=== PATIENT | male | born 1945 | race Caucasian/White ===

== ENCOUNTER 2017-10-06 19:11 | Inpatient (IN) | payer MEDICAID ==
--- NOTE | 2017-10-06 19:35 | ED Physician Chart ---
ED Chief Complaint/HPI - Patient Information Date Seen:: 10/06/17 Time Seen:: 19:30 Chief Complaint:: swelling left arm and right foot History of Present Illness:: Patient's had intermittent swelling of his left arm and right foot for last 2 weeks. A venous Doppler was done on both 10/03/17 and was negative. Review:: Transfer documents Reviewed ED Review of Systems - Review of Systems General/Constitutional: No fever, No chills, No weight loss, No weakness, No diaphoresis, No edema, No loss of appetite Skin: No skin lesions, No rash, No bruising Head: No headache, No light-headedness Eyes: No loss of vision, No pain, No diplopia ENT: No earache, No nasal drainage, No sore throat, No tinnitus Neck: No neck pain, No swelling, No thyromegaly, No stiffness, No mass noted Cardio Vascular: No chest pain, No palpitations, No PND, No orthopnea, No edema Pulmonary: No SOB, No cough, No sputum, No wheezing GI: No nausea, No vomiting, No diarrhea, No pain, No melena, No hematochezia, No constipation, No hematemesis G/U: No dysuria, No frequency, No hematuria Musculoskeletal: No bone or joint pain, No back pain, No muscle pain, Other ( see history and physical) Endocrine: No polyuria, No polydipsia Psychiatric: No prior psych history, No depression, No anxiety, No suicidal ideation Hematopoietic: No bruising, No lymphadenopathy Allergic/Immuno: No urticaria, No angioedema Neurological: No syncope, No focal symptoms, No weakness, No paresthesia, No headache, No seizure, No dizziness, No confusion, No vertigo ED Past Medical History - Past Medical History Past Medical History: Thyroid disorder, Other (traumatic subdural hematoma with cerebral edema; Parkinson's disease; seizures; encephalopathy; extraparametal symptoms; cephalea major depression; sobria; right eye syndrome;) Family History: Other (unavailable) Social History: Care Facility (unavailable) Surgical History: other (subdural hematoma) Psychiatricy History: Depression, Schizophrenia Medication: Reviewed Family Medical History - Family Member Mother History Unknown: Yes ED Physical Exam - Physical Examination General/Constitutional: Awake Other Gen/Cons comments:: No verbal response; chronically ill-appearing Head: Atraumatic Eyes: Lids, conjuctiva normal, PERRL Other Skin comments:: Lower extremity crusted abrasions ENMT: External ears, nose nl, Oropharynx nl Neck: No nuchal rigidity Respiratory: Nl effort/Exclusion, Clear to Auscultation Cardio Vascular: RRR GI: No tenderness/rebounding/guarding, No organomegaly : No CVA tenderness Other Extremities comments:: Posterior left elbow swelling; no swelling of remainder of left arm. No swelling of right leg Neuro/Psych: No focal deficits ED Labs/Radiology/EKG Results - Lab Results Results: Laboratory Results - last 24 hr 10/06/17 10/06/17 19:40 19:40 WBC 6.0 RBC 4.00 Hgb 13.2 Hct 38.5 L MCV 96.3 MCH 33.0 H MCHC Differential 34.2 RDW 13.3 Plt Count 192 MPV 8.5 Neutrophils % 63.8 Lymphocytes % 26.4 Monocytes % 6.0 Eosinophils % 3.1 Basophils % 0.7 Sodium 140 Potassium 3.8 Chloride 105 Carbon Dioxide 28.4 Anion Gap 10.4 BUN 24 Creatinine 0.9 Est GFR ( Amer) TNP Est GFR (Non-Af Amer) TNP BUN/Creatinine Ratio 26.7 Glucose 123 H Calcium 9.1 Total Bilirubin 0.3 AST 19 ALT 15 Alkaline Phosphatase 70 Total Protein 6.4 Albumin 3.8 L Globulin 2.6 Albumin/Globulin Ratio 1.5
[2017-10-06 19:50] LABS: % BASOPHILS 0.7 % (0.0-2.0); % EOSINOPHILS 3.1 % (0.0-5.0); % LYMPHOCYTES 26.4 % (20.0-50.0); % NEUTROPHILS 63.8 % (40.0-80.0); EOSINOPHILE ABSOLUTE 0.2 Th/cmm (0.1-0.4); HEMATOCRIT 38.5 % (41.0-60); HEMOGLOBIN 13.2 gm/dL (12-16); LYMPHOCYTE ABSOLUTE 1.6 Th/cmm (1.5-3.0); MEAN CELL VOLUME 96.3 fl (80-99); MEAN CORPUSCULAR HGB CONC 34.2 pg (28.0-36.0); MEAN PLATELET VOLUME 8.5 fl; MONOCYTE ABSOLUTE 0.4 Th/cmm (0.3-1.0); NEUTROPHILE ABSOLUTE 3.8 Th/cmm (1.8-8.0); PLATELET COUNT 192 Th/cmm (150-400); RED CELL DISTRIBUTION WIDTH 13.3 % (11.5-20.0)
[2017-10-06 20:09] LABS: ALB/GLOB RATIO 1.5 (1.0-1.8); ALBUMIN 3.8 gm/dL (4.2-5.5); ALKALINE PHOSPHATASE 70 U/L (34-104); ANION GAP 10.4 (7.0-16.0); BILIRUBIN,TOTAL 0.3 mg/dL (0.3-1.0); BUN - UREA NITROGEN 24 mg/dL (7-25); CALCIUM SERUM 9.1 mg/dL (8.6-10.3); CARBON DIOXIDE 28.4 mEq/L (21.0-31.0); CHLORIDE 105 mEq/L (98-107); CREATININE - SERUM 0.9 mg/dL (0.7-1.3); GLUCOSE 123 mg/dL (70-105); POTASSIUM SERUM 3.8 mEq/L (3.5-5.1); SGOT 19 U/L (13-39); SGPT/ALT 15 U/L (7-52); SODIUM SERUM 140 mEq/L (136-145); TOTAL PROTEIN,SERUM 6.4 gm/dL (6.0-8.3)
[2017-10-06] MEDS ORDERED: Magnesium Hydroxide (MOM) 30 mL UDC PO PRN (21:32)
[2017-10-06] MEDS ORDERED: Hydrocodone/APAP 5mg/325mg Tab PO PRN (21:32)
[2017-10-06] MEDS ORDERED: Maalox 30 mL Cup PO PRN (21:32)
[2017-10-06] MEDS ORDERED: guaiFENesin 200 MG/10 ML UDC PO PRN (21:35)
[2017-10-06] MEDS ORDERED: Ipratropium Neb 0.5 mg/2.5 mL UD HHN PRN (21:35)
[2017-10-06] MEDS ORDERED: Albuterol Nebulizer 2.5mg/3mL HHN PRN (21:35)
[2017-10-07] MEDS: Levofloxacin 500mg/100mL 500 MG/100 ML BAG IV SCH (00:19)
[2017-10-07 05:16] VITALS: BP 152/72
[2017-10-07 06:59] LABS: ANION GAP 8.1 (7.0-16.0); BUN - UREA NITROGEN 18 mg/dL (7-25); CARBON DIOXIDE 28.7 mEq/L (21.0-31.0); CHLORIDE 104 mEq/L (98-107); CREATININE - SERUM 0.8 mg/dL (0.7-1.3); GLUCOSE 101 mg/dL (70-105); POTASSIUM SERUM 3.8 mEq/L (3.5-5.1); SODIUM SERUM 137 mEq/L (136-145)
[2017-10-07] MEDS: Levothyroxine 0.05 Mg Tab PO SCH (07:07)
--- NOTE | 2017-10-07 08:42 | Diagnostic Imaging Report ---
Portable chest x-ray HISTORY: Cough There is a poor inspiration. This results in accentuation of the interstitial lung markings. Allowing for this factor, no acute focal pulmonary processes are seen. Allowing for the poor inspiration, the heart size appears normal. Atherosclerotic calcification seen in the aorta. Degenerative changes seen to the spine. IMPRESSION: 1. Allowing for a poor inspiration, no acute focal pulmonary processes
[2017-10-07] MEDS ORDERED: Probiotic Screen MC PRN (10:15)
[2017-10-07] MEDS: Multivitamin w/ Minerals Tab PO SCH (11:40)
[2017-10-07] MEDS: Polyvinyl Alcohol Ophth Soln 15 mL Bottle EACH EYE SCH ×2 (11:40→17:50)
--- NOTE | 2017-10-07 12:26 | Internal Medicine Prog Note ---
Internal Medicine Subjective - Subjective Service Date: 10/07/17 ([facility] [id number]) Internal Medicine Objective - Results Result Diagrams: 10/06/17 19:40 10/07/17 06:00 Recent Labs: Laboratory Last Values WBC 6.0 Th/cmm (4.8-10.8) 10/06/17 19:40 RBC 4.00 Mil/cmm (3.80-5.80) 10/06/17 19:40 Hgb 13.2 gm/dL (12-16) 10/06/17 19:40 Hct 38.5 % (41.0-60) L 10/06/17 19:40 MCV 96.3 fl (80-99) 10/06/17 19:40 MCH 33.0 pg (27.0-31.0) H 10/06/17 19:40 MCHC Differential 34.2 pg (28.0-36.0) 10/06/17 19:40 RDW 13.3 % (11.5-20.0) 10/06/17 19:40 Plt Count 192 Th/cmm (150-400) 10/06/17 19:40 MPV 8.5 fl 10/06/17 19:40 Neutrophils % 63.8 % (40.0-80.0) 10/06/17 19:40 Lymphocytes % 26.4 % (20.0-50.0) 10/06/17 19:40 Monocytes % 6.0 % (2.0-10.0) 10/06/17 19:40 Eosinophils % 3.1 % (0.0-5.0) 10/06/17 19:40 Basophils % 0.7 % (0.0-2.0) 10/06/17 19:40 ESR 1 mm/hr (0-20) 10/07/17 06:00 Sodium 137 mEq/L (136-145) 10/07/17 06:00 Potassium 3.8 mEq/L (3.5-5.1) 10/07/17 06:00 Chloride 104 mEq/L (98-107) 10/07/17 06:00 Carbon Dioxide 28.7 mEq/L (21.0-31.0) 10/07/17 06:00 Anion Gap 8.1 (7.0-16.0) 10/07/17 06:00 BUN 18 mg/dL (7-25) 10/07/17 06:00 Creatinine 0.8 mg/dL (0.7-1.3) 10/07/17 06:00 Est GFR ( Amer) TNP 10/07/17 06:00 Est GFR (Non-Af Amer) TNP 10/07/17 06:00 BUN/Creatinine Ratio 22.5 10/07/17 06:00 Glucose 101 mg/dL (70-105) 10/07/17 06:00 Calcium 9.0 mg/dL (8.6-10.3) 10/07/17 06:00 Total Bilirubin 0.3 mg/dL (0.3-1.0) 10/06/17 19:40 AST 19 U/L (13-39) 10/06/17 19:40 ALT 15 U/L (7-52) 10/06/17 19:40 Alkaline Phosphatase 70 U/L (34-104) 10/06/17 19:40 Ammonia 41 umol/L (16-53) 10/07/17 06:00 B-Natriuretic Peptide 74.0 pg/mL (5.0-100.0) 10/07/17 06:00 Total Protein 6.4 gm/dL (6.0-8.3) 10/06/17 19:40 Albumin 3.8 gm/dL (4.2-5.5) L 10/06/17 19:40 Globulin 2.6 gm/dL 10/06/17 19:40 Albumin/Globulin Ratio 1.5 (1.0-1.8) 10/06/17 19:40 TSH 3.08 uIU/ml (0.34-5.60) 10/07/17 06:00 - Physical Exam Vitals and I&O: Vital Signs Temp 98.2 F 10/07/17 06:10 Pulse 86 10/07/17 06:10 Resp 17 10/07/17 08:00 BP 140/72 10/07/17 06:10 Pulse Ox 95 10/07/17 06:10 Intake & Output 10/06/17 10/07/17 10/07/17 18:59 06:59 18:59 Intake Total 200 Balance 200 Weight (lbs) 145 lb 9.6 oz Intake: Oral 200 Other: # Voids 1 # Bowel Movements 0 Weight Source Bedscale Active Medications: Current Medications Acetaminophen (Tylenol) 650 mg PO Q6HR PRN PRN Reason: Pain or Fever >101 Stop: 12/05/17 21:31 Acetaminophen/Hydrocodone Bitart ([place] 5mg/325mg) 1 tab PO Q6H PRN PRN Reason: Pain (Severe), LEVEL 7-10 Stop: 12/05/17 21:31 Al Hydrox/Mg Hydrox/Simethicone (Maalox) 30 ml PO Q4HR PRN PRN Reason: GI DISTRESS Stop: 12/05/17 21:31 Albuterol Sulfate (Albuterol 2.5mg/3ml Neb Ud) 2.5 mg HHN Q2HRT PRN PRN Reason: Shortness of Breath or Wheeze Stop: 12/05/17 21:34 Artificial Tears (Artificial Tears Ophth Soln) 1 drop EACH EYE BID [facility] Stop: 12/06/17 08:59 Last Admin: 10/07/17 11:40 Dose: Not Given Benztropine Mesylate (Cogentin) 0.5 mg PO BID [facility] Stop: 12/06/17 08:59 Last Admin: 10/07/17 11:39 Dose: Not Given Bisacodyl (Dulcolax 10 Mg Supp) 10 mg RC DAILY PRN PRN Reason: Constipation Stop: 12/05/17 21:31 Docusate Sodium (Colace) 100 mg PO DAILY [facility] Stop: 12/06/17 08:59 Last Admin: 10/07/17 11:39 Dose: Not Given Famotidine (Pepcid) 20 mg PO DAILY [facility] Stop: 12/06/17 08:59 Last Admin: 10/07/17 11:39 Dose: Not Given Gabapentin (Neurontin) 300 mg PO BID [facility] Stop: 12/06/17 08:59 Last Admin: 10/07/17 11:39 Dose: Not Given Guaifenesin (Robitussin) 200 mg PO Q4HR PRN PRN Reason: Cough or Congestion Stop: 12/05/17 21:34 Heparin Sodium (Porcine) (Heparin) 5,000 units SUBQ Q12HR [facility] Stop: 12/06/17 08:59 Last Admin: 10/07/17 11:39 Dose: Not Given Levofloxacin (Levaquin Pb) 500 mg in 100 mls @ 100 mls/hr IV Q24HR [facility] Stop: 12/05/17 22:59 Last Admin: 10/07/17 00:19 Dose: 100 mls/hr Ipratropium [place] (Atrovent Neb 0.5mg/2.5ml) 0.5 mg HHN Q2HRT PRN PRN Reason: Shortness of Breath or Wheeze Stop: 12/05/17 21:34 Lactobacillus Rhamnosus (Culturelle 15b) 1 each PO DAILY [facility] Stop: 12/07/17 08:59 Levetiracetam (Keppra) 500 mg PO BID [facility] Stop: 12/06/17 08:59 Last Admin: 10/07/17 11:40 Dose: Not Given Levothyroxine Sodium (Synthroid) 0.05 mg PO QDAC [facility] Stop: 12/06/17 07:29 Last Admin: 10/07/17 07:07 Dose: 0.05 mg Lorazepam (Ativan) 0.5 mg PO Q6HR PRN; Protocol PRN Reason: Anxiety Stop: 12/05/17 21:31 Last Admin: 10/06/17 23:19 Dose: 0.5 mg Magnesium Hydroxide (Milk Of Magnesia) 30 ml PO DAILY PRN PRN Reason: Constipation Stop: 12/05/17 21:31 Miscellaneous (Probiotic Screen) 1 ea MC PRN PRN PRN Reason: PROTOCOL Stop: 12/06/17 10:14 Ondansetron HCl (Zofran) 4 mg IV Q8H PRN PRN Reason: Nausea / Vomiting Stop: 12/05/17 21:34 Risperidone (Risperdal) 1 mg PO BID [facility]; Protocol Stop: 12/06/17 08:59 Last Admin: 10/07/17 11:40 Dose: Not Given Senna (Senna) 8.6 mg PO HS [facility] Stop: 12/06/17 20:59
--- NOTE | 2017-10-07 14:14 | History & Physical ---
ADMIT DATE: 10/07/[address] Jonny Constantino. CHIEF COMPLAINT: Swelling, left arm and right foot. HISTORY OF PRESENT ILLNESS: This is a 72-year-old male who is a group home resident, admitted to the Med/Surg unit for intermittent swelling of his left arm and right foot for the last 2 weeks. The patient had a venous Doppler done on 10/03/2017 negative for any DVT. For further management, the patient is now admitted. PAST MEDICAL HISTORY: Hypothyroid, traumatic subdural hematoma with cerebral edema, Parkinson's disease, seizures, encephalopathy, extrapyramidal symptoms, major depression, right eye syndrome. FAMILY HISTORY: Noncontributory. SOCIAL HISTORY: The patient is a group home resident, requiring 24 hour nursing care. SURGICAL HISTORY: Subdural hematoma. MEDICATIONS: Please see medication list. REVIEW OF SYSTEMS: GENERAL: Denies any fevers and chills. CARDIOVASCULAR: Steven chest pain. RESPIRATORY: Denies shortness of breath. GASTROINTESTINAL: Denies nausea, vomiting, abdominal pain. GENITOURINARY: Denies increased frequency or dysuria. All other systems are reviewed and are negative. PHYSICAL EXAMINATION: GENERAL: Elderly male. Awake, alert, in no apparent distress. VITAL SIGNS: Temperature 98.2, heart rate 86, blood pressure 140/72, respiration 18, O2 95%. HEENT: Head: Normocephalic, atraumatic. NECK: Supple. No mass. LUNGS: Clear bilaterally. HEART: Regular rhythm. ABDOMEN: Soft, nontender. LABORATORY DATA: WBC 6.0, H and H 13.2 and 38.5, platelet of 192. Sodium 137, potassium 3.8, chloride 104, CO2 28.7, BUN 18, creatinine 0.8, albumin 3.8. DIAGNOSTICS: The patient had a chest x-ray done and impression is allowing for poor inspiration, no acute focal pulmonary processes. ASSESSMENT: Lower leg cellulitis, mild protein calorie malnutrition, hypothyroid, Parkinson's, seizures, right eye syndrome, major depression. PLAN: We will get a 2D echocardiogram done. Psychiatry consultation. Pureed diet. We will wait for urinalysis. Empiric IV antibiotics of Levaquin 500 mg IV q.24. We will continue to follow this patient. JOB# [id number]
--- NOTE | 2017-10-07 18:51 | Consultation ---
DATE OF CONSULTATION: 10/07/2017 REQUESTING PHYSICIAN: Jonny Constantino D.O. REASON FOR CONSULTATION: Agitation and psychosis. HISTORY OF PRESENT ILLNESS: This patient is a 72-year-old resident of a longterm facility. Information obtained by directly interviewing the patient as well as reviewing the admission papers and they are reliable. The patient is reported to have been having swelling of his left arm and right foot for the past 2 weeks. The patient has been admitted for management and at this time, the patient is talking to self and getting easily agitated and has been trying to get out of the bed. The patient has to be put in [place] restraints. PAST PSYCHIATRIC HISTORY: Not known. MEDICAL HISTORY: Significant for hypothyroidism, traumatic subdural hematoma with cerebral edema, history of Parkinson's disease, seizure disorder and encephalopathy. PAST PSYCHIATRIC HISTORY: Details are not known. SOCIAL HISTORY: The patient is a resident of the longterm facility. SUBSTANCE ABUSE HISTORY: Details are not known. MENTAL STATUS EXAMINATION: The patient is a 72-year-old, looking his stated age, superficially cooperative. Eye contact is poor. Mood is noted to be irritable. Affect is constricted. Insight and judgment at this time are noted to be still impaired. Impulse control is poor. The patient has tardive dyskinesia-like symptoms around the oral area. The patient is very confused and disoriented and has been trying to get out of the bed. Review of chart indicated that the patient is currently on Respirdal and Cogentin. The patient is actively responding to internal stimuli and is noted to be very paranoid, but patient is not able to provide much of information. DIAGNOSTIC IMPRESSION: AXIS I: Psychotic disorder, not otherwise specified. PLAN: To continue the patient with Risperdal and Cogentin as ordered and follow up with the supportive therapy. JOB# [id number]
[2017-10-08] MEDS: Levofloxacin 500mg/100mL 500 MG/100 ML BAG IV SCH ×2 (00:37→22:21)
[2017-10-08 04:55] LABS: % BASOPHILS 0.8 % (0.0-2.0); % LYMPHOCYTES 35.4 % (20.0-50.0); % MONOCYTES 7.4 % (2.0-10.0); % NEUTROPHILS 55.4 % (40.0-80.0); EOSINOPHILE ABSOLUTE 0.1 Th/cmm (0.1-0.4); HEMATOCRIT 43.5 % (41.0-60); HEMOGLOBIN 14.8 gm/dL (12-16); LYMPHOCYTE ABSOLUTE 2.2 Th/cmm (1.5-3.0); MEAN CELL VOLUME 95.5 fl (80-99); MEAN CORPUSCULAR HEMOGLOBIN 32.5 pg (27.0-31.0); MEAN PLATELET VOLUME 8.5 fl; MONOCYTE ABSOLUTE 0.5 Th/cmm (0.3-1.0); NEUTROPHILE ABSOLUTE 3.3 Th/cmm (1.8-8.0); PLATELET COUNT 198 Th/cmm (150-400); RED BLOOD COUNT 4.55 Mil/cmm (3.80-5.80); WHITE BLOOD COUNT 6.1 Th/cmm (4.8-10.8)
[2017-10-08 05:26] LABS: ANION GAP 14.4 (7.0-16.0); BUN - UREA NITROGEN 20 mg/dL (7-25); CALCIUM SERUM 9.9 mg/dL (8.6-10.3); CARBON DIOXIDE 25.1 mEq/L (21.0-31.0); CHLORIDE 104 mEq/L (98-107); GLUCOSE 93 mg/dL (70-105); POTASSIUM SERUM 3.5 mEq/L (3.5-5.1); SODIUM SERUM 140 mEq/L (136-145)
[2017-10-08] MEDS: Levothyroxine 0.05 Mg Tab PO SCH (06:30)
[2017-10-08] MEDS: Polyvinyl Alcohol Ophth Soln 15 mL Bottle EACH EYE SCH ×2 (10:37→16:50)
[2017-10-08] MEDS: Lactobacillus Rhamnosus GG 15 Billion CFU CAP.SPRINK PO SCH (10:38)
[2017-10-08] MEDS: Multivitamin w/ Minerals Tab PO SCH (10:39)
[2017-10-08 12:09] LABS: FOLIC ACID 16.3 ng/mL (>3.0)
--- NOTE | 2017-10-08 13:58 | Internal Medicine Prog Note ---
Internal Medicine Subjective - Subjective Patient seen and examined:: with staff, chart reviewed Patient is:: asleep, non-verbal, non-interactive, eyes closed, in bed Patient Complaints of:: congestion Per staff patient has:: no adverse event, no episodes of fall, poor appetite, agitated, noncompliant Internal Medicine Objective - Results Result Diagrams: 10/08/17 04:40 10/08/17 04:40 Recent Labs: Laboratory Last Values WBC 6.1 Th/cmm (4.8-10.8) 10/08/17 04:40 RBC 4.55 Mil/cmm (3.80-5.80) 10/08/17 04:40 Hgb 14.8 gm/dL (12-16) 10/08/17 04:40 Hct 43.5 % (41.0-60) 10/08/17 04:40 MCV 95.5 fl (80-99) 10/08/17 04:40 MCH 32.5 pg (27.0-31.0) H 10/08/17 04:40 MCHC Differential 34.0 pg (28.0-36.0) 10/08/17 04:40 RDW 13.0 % (11.5-20.0) 10/08/17 04:40 Plt Count 198 Th/cmm (150-400) 10/08/17 04:40 MPV 8.5 fl 10/08/17 04:40 Neutrophils % 55.4 % (40.0-80.0) 10/08/17 04:40 Lymphocytes % 35.4 % (20.0-50.0) 10/08/17 04:40 Monocytes % 7.4 % (2.0-10.0) 10/08/17 04:40 Eosinophils % 1.0 % (0.0-5.0) 10/08/17 04:40 Basophils % 0.8 % (0.0-2.0) 10/08/17 04:40 ESR 1 mm/hr (0-20) 10/07/17 06:00 Sodium 140 mEq/L (136-145) 10/08/17 04:40 Potassium 3.5 mEq/L (3.5-5.1) 10/08/17 04:40 Chloride 104 mEq/L (98-107) 10/08/17 04:40 Carbon Dioxide 25.1 mEq/L (21.0-31.0) 10/08/17 04:40 Anion Gap 14.4 (7.0-16.0) 10/08/17 04:40 BUN 20 mg/dL (7-25) 10/08/17 04:40 Creatinine 1.0 mg/dL (0.7-1.3) 10/08/17 04:40 Est GFR ( Amer) TNP 10/08/17 04:40 Est GFR (Non-Af Amer) TNP 10/08/17 04:40 BUN/Creatinine Ratio 20.0 10/08/17 04:40 Glucose 93 mg/dL (70-105) 10/08/17 04:40 Calcium 9.9 mg/dL (8.6-10.3) 10/08/17 04:40 Total Bilirubin 0.3 mg/dL (0.3-1.0) 10/06/17 19:40 AST 19 U/L (13-39) 10/06/17 19:40 ALT 15 U/L (7-52) 10/06/17 19:40 Alkaline Phosphatase 70 U/L (34-104) 10/06/17 19:40 Ammonia 41 umol/L (16-53) 10/07/17 06:00 B-Natriuretic Peptide 74.0 pg/mL (5.0-100.0) 10/07/17 06:00 Total Protein 6.4 gm/dL (6.0-8.3) 10/06/17 19:40 Albumin 3.8 gm/dL (4.2-5.5) L 10/06/17 19:40 Globulin 2.6 gm/dL 10/06/17 19:40 Albumin/Globulin Ratio 1.5 (1.0-1.8) 10/06/17 19:40 Vitamin B12 547 pg/mL (232-1245) 10/07/17 06:00 Folic Acid 16.3 ng/mL (>3.0) 10/07/17 06:00 TSH 3.08 uIU/ml (0.34-5.60) 10/07/17 06:00 - Physical Exam Vitals and I&O: Vital Signs Temp 98.5 F 10/08/17 12:00 Pulse 109 07/07/18 12:00 Resp 18 10/08/17 12:00 BP 125/80 10/08/17 12:00 Pulse Ox 96 10/08/17 12:00 Intake & Output 10/07/17 10/08/17 10/08/17 18:59 06:59 18:59 Intake Total 200 Output Total 3 Balance 197 Weight (lbs) 54.159 kg Intake: Oral 200 Output: Urine 3 Other: Weight Source Bedscale Active Medications: Current Medications Acetaminophen (Tylenol) 650 mg PO Q6HR PRN PRN Reason: Pain or Fever >101 Stop: 12/05/17 21:31 Acetaminophen/Hydrocodone Bitart (Only 5mg/325mg) 1 tab PO Q6H PRN PRN Reason: Pain (Severe), LEVEL 7-10 Stop: 12/05/17 21:31 Al Hydrox/Mg Hydrox/Simethicone (Maalox) 30 ml PO Q4HR PRN PRN Reason: GI DISTRESS Stop: 12/05/17 21:31 Albuterol Sulfate (Albuterol 2.5mg/3ml Neb Ud) 2.5 mg HHN Q2HRT PRN PRN Reason: Shortness of Breath or Wheeze Stop: 12/05/17 21:34 Artificial Tears (Artificial Tears Ophth Soln) 1 drop EACH EYE BID [facility] Stop: 12/06/17 08:59 Last Admin: 10/08/17 10:37 Dose: 1 drop Benztropine Mesylate (Cogentin) 0.5 mg PO BID [facility] Stop: 12/06/17 08:59 Last Admin: 10/08/17 10:37 Dose: 0.5 mg Bisacodyl (Dulcolax 10 Mg Supp) 10 mg RC DAILY PRN PRN Reason: Constipation Stop: 12/05/17 21:31 Docusate Sodium (Colace) 100 mg PO DAILY [facility] Stop: 12/06/17 08:59 Last Admin: 10/08/17 10:39 Dose: Not Given Famotidine (Pepcid) 20 mg PO DAILY [facility] Stop: 12/06/17 08:59 Last Admin: 10/08/17 10:37 Dose: 20 mg Gabapentin (Neurontin) 300 mg PO BID [facility] Stop: 12/06/17 08:59 Last Admin: 10/08/17 10:37 Dose: 300 mg Guaifenesin (Robitussin) 200 mg PO Q4HR PRN PRN Reason: Cough or Congestion Stop: 12/05/17 21:34 Heparin Sodium (Porcine) (Heparin) 5,000 units SUBQ Q12HR [facility] Stop: 12/06/17 08:59 Last Admin: 10/08/17 10:38 Dose: Not Given Levofloxacin (Levaquin Pb) 500 mg in 100 mls @ 100 mls/hr IV Q24HR [facility] Stop: 12/05/17 22:59 Last Admin: 10/08/17 00:37 Dose: 100 mls/hr Ipratropium [place] (Atrovent Neb 0.5mg/2.5ml) 0.5 mg HHN Q2HRT PRN PRN Reason: Shortness of Breath or Wheeze Stop: 12/05/17 21:34 Lactobacillus Rhamnosus (Culturelle 15b) 1 each PO DAILY [facility] Stop: 12/07/17 08:59 Last Admin: 10/08/17 10:38 Dose: Not Given Levetiracetam (Keppra) 500 mg PO BID [facility] Stop: 12/06/17 08:59 Last Admin: 10/08/17 10:38 Dose: 500 mg Levothyroxine Sodium (Synthroid) 0.05 mg PO QDAC [facility] Stop: 12/06/17 07:29 Last Admin: 10/08/17 06:30 Dose: 0.05 mg Lorazepam (Ativan) 0.5 mg PO Q6HR PRN; Protocol PRN Reason: Anxiety Stop: 12/05/17 21:31 Last Admin: 10/06/17 23:19 Dose: 0.5 mg Magnesium Hydroxide (Milk Of Magnesia) 30 ml PO DAILY PRN PRN Reason: Constipation Stop: 12/05/17 21:31 Miscellaneous (Probiotic Screen) 1 ea MC PRN PRN PRN Reason: PROTOCOL Stop: 12/06/17 10:14 Ondansetron HCl (Zofran) 4 mg IV Q8H PRN PRN Reason: Nausea / Vomiting Stop: 12/05/17 21:34 Risperidone (Risperdal) 1 mg PO BID [facility]; Protocol Stop: 12/06/17 08:59 Last Admin: 10/08/17 10:37 Dose: 1 mg Senna (Senna) 8.6 mg PO HS [facility] Stop: 12/06/17 20:59 Last Admin: 10/07/17 21:07 Dose: 8.6 mg General: demented, appears older HEENT: NC/AT, PERRLA Neck: Supple, No LAD Lungs: congested, ronchi Cardiovascular: RRR, Normal S1, Normal S2, with murmur Abdomen: soft, globular, positive bowel sound Extremities: excoriation, ecchymosis (l elbow), deformity Internal Medicine Assmt/Plan - Assessment Assessment: ASSESSMENT: Left elbow cellulitis, mild protein calorie malnutrition, hypothyroid, Parkinson's, seizures, right eye syndrome, major depression. PLAN: We will get a 2D echocardiogram done. Psychiatry consultation. Pureed diet. We will wait for urinalysis. Empiric IV antibiotics of Levaquin 500 mg IV q.24. We will continue to follow this patient. - Plan Plan: cpm
[2017-10-09] MEDS: Levothyroxine 0.05 Mg Tab PO SCH (08:26)
[2017-10-09] MEDS: Lactobacillus Rhamnosus GG 15 Billion CFU CAP.SPRINK PO SCH (08:27)
[2017-10-09] MEDS: Multivitamin w/ Minerals Tab PO SCH (08:27)
[2017-10-09] MEDS: Polyvinyl Alcohol Ophth Soln 15 mL Bottle EACH EYE SCH ×2 (08:27→17:05)
--- NOTE | 2017-10-09 12:34 | Internal Medicine Prog Note ---
Internal Medicine Subjective - Subjective Patient seen and examined:: with staff, chart reviewed Patient is:: asleep, non-verbal, non-interactive, eyes closed, in bed Patient Complaints of:: congestion Per staff patient has:: no adverse event, no episodes of fall, poor appetite, agitated, noncompliant Internal Medicine Objective - Results Result Diagrams: 10/08/17 04:40 10/08/17 04:40 Recent Labs: Laboratory Last Values WBC 6.1 Th/cmm (4.8-10.8) 10/08/17 04:40 RBC 4.55 Mil/cmm (3.80-5.80) 10/08/17 04:40 Hgb 14.8 gm/dL (12-16) 10/08/17 04:40 Hct 43.5 % (41.0-60) 10/08/17 04:40 MCV 95.5 fl (80-99) 10/08/17 04:40 MCH 32.5 pg (27.0-31.0) H 10/08/17 04:40 MCHC Differential 34.0 pg (28.0-36.0) 10/08/17 04:40 RDW 13.0 % (11.5-20.0) 10/08/17 04:40 Plt Count 198 Th/cmm (150-400) 10/08/17 04:40 MPV 8.5 fl 10/08/17 04:40 Neutrophils % 55.4 % (40.0-80.0) 10/08/17 04:40 Lymphocytes % 35.4 % (20.0-50.0) 10/08/17 04:40 Monocytes % 7.4 % (2.0-10.0) 10/08/17 04:40 Eosinophils % 1.0 % (0.0-5.0) 10/08/17 04:40 Basophils % 0.8 % (0.0-2.0) 10/08/17 04:40 ESR 1 mm/hr (0-20) 10/07/17 06:00 Sodium 140 mEq/L (136-145) 10/08/17 04:40 Potassium 3.5 mEq/L (3.5-5.1) 10/08/17 04:40 Chloride 104 mEq/L (98-107) 10/08/17 04:40 Carbon Dioxide 25.1 mEq/L (21.0-31.0) 10/08/17 04:40 Anion Gap 14.4 (7.0-16.0) 10/08/17 04:40 BUN 20 mg/dL (7-25) 10/08/17 04:40 Creatinine 1.0 mg/dL (0.7-1.3) 10/08/17 04:40 Est GFR ( Amer) TNP 10/08/17 04:40 Est GFR (Non-Af Amer) TNP 10/08/17 04:40 BUN/Creatinine Ratio 20.0 10/08/17 04:40 Glucose 93 mg/dL (70-105) 10/08/17 04:40 Calcium 9.9 mg/dL (8.6-10.3) 10/08/17 04:40 Total Bilirubin 0.3 mg/dL (0.3-1.0) 10/06/17 19:40 AST 19 U/L (13-39) 10/06/17 19:40 ALT 15 U/L (7-52) 10/06/17 19:40 Alkaline Phosphatase 70 U/L (34-104) 10/06/17 19:40 Ammonia 41 umol/L (16-53) 10/07/17 06:00 B-Natriuretic Peptide 74.0 pg/mL (5.0-100.0) 10/07/17 06:00 Total Protein 6.4 gm/dL (6.0-8.3) 10/06/17 19:40 Albumin 3.8 gm/dL (4.2-5.5) L 10/06/17 19:40 Globulin 2.6 gm/dL 10/06/17 19:40 Albumin/Globulin Ratio 1.5 (1.0-1.8) 10/06/17 19:40 Vitamin B12 547 pg/mL (232-1245) 10/07/17 06:00 Folic Acid 16.3 ng/mL (>3.0) 10/07/17 06:00 TSH 3.08 uIU/ml (0.34-5.60) 10/07/17 06:00 - Physical Exam Vitals and I&O: Vital Signs Temp 97.4 F 10/09/17 12:00 Pulse 65 07/08/18 12:00 Resp 18 10/09/17 12:00 BP 111/63 10/09/17 12:00 Pulse Ox 93 10/09/17 08:00 Intake & Output 10/08/17 10/09/17 10/09/17 18:59 06:59 18:59 Intake Total 1000 340 Balance 1000 340 Weight (lbs) 54.159 kg 53.977 kg Intake: Oral 1000 340 Other: # Voids 4 2 # Bowel Movements 0 0 Weight Source Bedscale Bedscale Active Medications: Current Medications Acetaminophen (Tylenol) 650 mg PO Q6HR PRN PRN Reason: Pain or Fever >101 Stop: 12/05/17 21:31 Acetaminophen/Hydrocodone Bitart ([place] 5mg/325mg) 1 tab PO Q6H PRN PRN Reason: Pain (Severe), LEVEL 7-10 Stop: 12/05/17 21:31 Al Hydrox/Mg Hydrox/Simethicone (Maalox) 30 ml PO Q4HR PRN PRN Reason: GI DISTRESS Stop: 12/05/17 21:31 Albuterol Sulfate (Albuterol 2.5mg/3ml Neb Ud) 2.5 mg HHN Q2HRT PRN PRN Reason: Shortness of Breath or Wheeze Stop: 12/05/17 21:34 Artificial Tears (Artificial Tears Ophth Soln) 1 drop EACH EYE BID [facility] Stop: 12/06/17 08:59 Last Admin: 10/09/17 08:27 Dose: 1 drop Benztropine Mesylate (Cogentin) 0.5 mg PO BID [facility] Stop: 12/06/17 08:59 Last Admin: 10/09/17 08:27 Dose: Not Given Bisacodyl (Dulcolax 10 Mg Supp) 10 mg RC DAILY PRN PRN Reason: Constipation Stop: 12/05/17 21:31 Docusate Sodium (Colace) 100 mg PO DAILY [facility] Stop: 12/06/17 08:59 Last Admin: 10/09/17 08:27 Dose: Not Given Famotidine (Pepcid) 20 mg PO DAILY [facility] Stop: 12/06/17 08:59 Last Admin: 10/09/17 08:26 Dose: Not Given Gabapentin (Neurontin) 300 mg PO BID [facility] Stop: 12/06/17 08:59 Last Admin: 10/09/17 08:27 Dose: Not Given Guaifenesin (Robitussin) 200 mg PO Q4HR PRN PRN Reason: Cough or Congestion Stop: 12/05/17 21:34 Heparin Sodium (Porcine) (Heparin) 5,000 units SUBQ Q12HR [facility] Stop: 12/06/17 08:59 Last Admin: 10/09/17 08:27 Dose: 5,000 units Levofloxacin (Levaquin Pb) 500 mg in 100 mls @ 100 mls/hr IV Q24HR [facility] Stop: 12/05/17 22:59 Last Admin: 10/08/17 22:21 Dose: 100 mls/hr Ipratropium [place] (Atrovent Neb 0.5mg/2.5ml) 0.5 mg HHN Q2HRT PRN PRN Reason: Shortness of Breath or Wheeze Stop: 12/05/17 21:34 Lactobacillus Rhamnosus (Culturelle 15b) 1 each PO DAILY [facility] Stop: 12/07/17 08:59 Last Admin: 10/09/17 08:27 Dose: Not Given Levetiracetam (Keppra) 500 mg PO BID [facility] Stop: 12/06/17 08:59 Last Admin: 10/09/17 08:27 Dose: Not Given Levothyroxine Sodium (Synthroid) 0.05 mg PO QDAC [facility] Stop: 12/06/17 07:29 Last Admin: 10/09/17 08:26 Dose: Not Given Lorazepam (Ativan) 0.5 mg PO Q6HR PRN; Protocol PRN Reason: Anxiety Stop: 12/05/17 21:31 Last Admin: 10/06/17 23:19 Dose: 0.5 mg Magnesium Hydroxide (Milk Of Magnesia) 30 ml PO DAILY PRN PRN Reason: Constipation Stop: 12/05/17 21:31 Miscellaneous (Probiotic Screen) 1 ea [facility] PRN PRN PRN Reason: PROTOCOL Stop: 12/06/17 10:14 Ondansetron HCl (Zofran) 4 mg IV Q8H PRN PRN Reason: Nausea / Vomiting Stop: 12/05/17 21:34 Risperidone (Risperdal) 1 mg PO BID [facility]; Protocol Stop: 12/06/17 08:59 Last Admin: 10/09/17 08:27 Dose: Not Given Senna (Senna) 8.6 mg PO HS [facility] Stop: 12/06/17 20:59 Last Admin: 10/08/17 22:21 Dose: 8.6 mg General: demented, appears older HEENT: NC/AT, PERRLA Neck: Supple, No LAD Lungs: congested, ronchi Cardiovascular: RRR, Normal S1, Normal S2, with murmur Abdomen: soft, globular, positive bowel sound Extremities: excoriation, ecchymosis (l elbow), deformity Internal Medicine Assmt/Plan - Assessment Assessment: ASSESSMENT: Left elbow cellulitis, mild protein calorie malnutrition, hypothyroid, Parkinson's, seizures, right eye syndrome, major depression. PLAN: We will get a 2D echocardiogram done. Psychiatry consultation. Pureed diet. We will wait for urinalysis. Empiric IV antibiotics of Levaquin 500 mg IV q.24. We will continue to follow this patient. - Plan Plan: cpm
[2017-10-09 19:05] LABS: URINE MICROSCOPIC INDICATED? YES; URINE SOURCE CATH
[2017-10-09 19:09] LABS: URINE BILIRUBIN NEGATIVE (NEGATIVE); URINE BLOOD NEGATIVE (NEGATIVE); URINE GLUCOSE (UA) NEGATIVE (NEGATIVE); URINE KETONE TRACE mg/dL (NEGATIVE); URINE LEUKOCYTE ESTERASE NEGATIVE (NEGATIVE); URINE NITRATE NEGATIVE (NEGATIVE); URINE PROTEIN TRACE mg/dL (NEGATIVE); URINE UROBILINOGEN 0.2 E.U./dL (0.2 - 1.0)
[2017-10-09 19:12] LABS: URINE CLARITY CLEAR (CLEAR); URINE COLOR YELLOW
[2017-10-09 19:13] LABS: URINE BACTERIA FEW /hpf (NONE SEEN); URINE EPITHELIAL CELLS FEW /lpf (FEW); URINE RBC 0-2 /hpf (0-5)
[2017-10-09] MEDS: Levofloxacin 500mg/100mL 500 MG/100 ML BAG IV SCH (23:38)
[2017-10-10] MEDS: Levothyroxine 0.05 Mg Tab PO SCH (06:54)
[2017-10-10] MEDS: Lactobacillus Rhamnosus GG 15 Billion CFU CAP.SPRINK PO SCH (08:47)
[2017-10-10] MEDS: Multivitamin w/ Minerals Tab PO SCH (08:47)
[2017-10-10] MEDS: Polyvinyl Alcohol Ophth Soln 15 mL Bottle EACH EYE SCH ×2 (08:48→17:07)
--- NOTE | 2017-10-10 11:53 | Internal Medicine Prog Note ---
Internal Medicine Subjective - Subjective Service Date: 10/10/17 Patient seen and examined:: with staff Patient is:: asleep, non-verbal, non-interactive, eyes closed, in bed Patient Complaints of:: congestion Per staff patient has:: no adverse event, no episodes of fall, poor appetite, agitated, noncompliant Internal Medicine Objective - Results Result Diagrams: 10/08/17 04:40 10/08/17 04:40 Recent Labs: Laboratory Last Values WBC 6.1 Th/cmm (4.8-10.8) 10/08/17 04:40 RBC 4.55 Mil/cmm (3.80-5.80) 10/08/17 04:40 Hgb 14.8 gm/dL (12-16) 10/08/17 04:40 Hct 43.5 % (41.0-60) 10/08/17 04:40 MCV 95.5 fl (80-99) 10/08/17 04:40 MCH 32.5 pg (27.0-31.0) H 10/08/17 04:40 MCHC Differential 34.0 pg (28.0-36.0) 10/08/17 04:40 RDW 13.0 % (11.5-20.0) 10/08/17 04:40 Plt Count 198 Th/cmm (150-400) 10/08/17 04:40 MPV 8.5 fl 10/08/17 04:40 Neutrophils % 55.4 % (40.0-80.0) 10/08/17 04:40 Lymphocytes % 35.4 % (20.0-50.0) 10/08/17 04:40 Monocytes % 7.4 % (2.0-10.0) 10/08/17 04:40 Eosinophils % 1.0 % (0.0-5.0) 10/08/17 04:40 Basophils % 0.8 % (0.0-2.0) 10/08/17 04:40 ESR 1 mm/hr (0-20) 10/07/17 06:00 Sodium 140 mEq/L (136-145) 10/08/17 04:40 Potassium 3.5 mEq/L (3.5-5.1) 10/08/17 04:40 Chloride 104 mEq/L (98-107) 10/08/17 04:40 Carbon Dioxide 25.1 mEq/L (21.0-31.0) 10/08/17 04:40 Anion Gap 14.4 (7.0-16.0) 10/08/17 04:40 BUN 20 mg/dL (7-25) 10/08/17 04:40 Creatinine 1.0 mg/dL (0.7-1.3) 10/08/17 04:40 Est GFR ( Amer) TNP 10/08/17 04:40 Est GFR (Non-Af Amer) TNP 10/08/17 04:40 BUN/Creatinine Ratio 20.0 10/08/17 04:40 Glucose 93 mg/dL (70-105) 10/08/17 04:40 Calcium 9.9 mg/dL (8.6-10.3) 10/08/17 04:40 Total Bilirubin 0.3 mg/dL (0.3-1.0) 10/06/17 19:40 AST 19 U/L (13-39) 10/06/17 19:40 ALT 15 U/L (7-52) 10/06/17 19:40 Alkaline Phosphatase 70 U/L (34-104) 10/06/17 19:40 Ammonia 41 umol/L (16-53) 10/07/17 06:00 B-Natriuretic Peptide 74.0 pg/mL (5.0-100.0) 10/07/17 06:00 Total Protein 6.4 gm/dL (6.0-8.3) 10/06/17 19:40 Albumin 3.8 gm/dL (4.2-5.5) L 10/06/17 19:40 Globulin 2.6 gm/dL 10/06/17 19:40 Albumin/Globulin Ratio 1.5 (1.0-1.8) 10/06/17 19:40 Vitamin B12 547 pg/mL (232-1245) 10/07/17 06:00 Folic Acid 16.3 ng/mL (>3.0) 10/07/17 06:00 TSH 3.08 uIU/ml (0.34-5.60) 10/07/17 06:00 Urine Source CATH 10/09/17 18:40 Urine Color YELLOW 10/09/17 18:40 Urine Clarity CLEAR (CLEAR) 10/09/17 18:40 Urine pH 6.0 (4.6 - 8.0) 10/09/17 18:[address] [place] >= 1.030 (1.005-1.030) 10/09/17 18:40 Urine Protein TRACE mg/dL (NEGATIVE) 10/09/17 18:40 Urine Glucose (UA) NEGATIVE mg/dL (NEGATIVE) 10/09/17 18:40 Urine Ketones TRACE mg/dL (NEGATIVE) 10/09/17 18:40 Urine Blood NEGATIVE (NEGATIVE) 10/09/17 18:40 Urine Nitrate NEGATIVE (NEGATIVE) 10/09/17 18:40 Urine Bilirubin NEGATIVE (NEGATIVE) 10/09/17 18:40 Urine Urobilinogen 0.2 E.U./dL (0.2 - 1.0) 10/09/17 18:40 Ur Leukocyte Esterase NEGATIVE (NEGATIVE) 10/09/17 18:40 Urine RBC 0-2 /hpf (0-5) H 10/09/17 18:40 Urine WBC 2-5 /hpf (0-5) 10/09/17 18:40 Ur Epithelial Cells FEW /lpf (FEW) 10/09/17 18:40 Urine Bacteria FEW /hpf (NONE SEEN) 10/09/17 18:40 - Physical Exam Vitals and I&O: Vital Signs Temp 96.2 F 10/10/17 07:42 Pulse 77 10/10/17 07:42 Resp 19 10/10/17 07:42 BP 120/69 10/10/17 07:42 Pulse Ox 100 10/10/17 07:42 Intake & Output 10/09/17 10/10/17 10/10/17 18:59 06:59 18:59 Intake Total 850 Output Total 260 Balance 590 Weight (lbs) 136 lb 8 oz 136 lb 8 oz Intake: Oral 850 Output: Urine 260 Other: # Voids 0 2 # Bowel Movements 0 1 Weight Source Bedscale Bedscale Active Medications: Current Medications Acetaminophen (Tylenol) 650 mg PO Q6HR PRN PRN Reason: Pain or Fever >101 Stop: 12/05/17 21:31 Acetaminophen/Hydrocodone Bitart ([place] 5mg/325mg) 1 tab PO Q6H PRN PRN Reason: Pain (Severe), LEVEL 7-10 Stop: 12/05/17 21:31 Al Hydrox/Mg Hydrox/Simethicone (Maalox) 30 ml PO Q4HR PRN PRN Reason: GI DISTRESS Stop: 12/05/17 21:31 Albuterol Sulfate (Albuterol 2.5mg/3ml Neb Ud) 2.5 mg HHN Q2HRT PRN PRN Reason: Shortness of Breath or Wheeze Stop: 12/05/17 21:34 Artificial Tears (Artificial Tears Ophth Soln) 1 drop EACH EYE BID [facility] Stop: 12/06/17 08:59 Last Admin: 10/10/17 08:48 Dose: 1 drop Benztropine Mesylate (Cogentin) 0.5 mg PO BID [facility] Stop: 12/06/17 08:59 Last Admin: 10/10/17 08:47 Dose: 0.5 mg Bisacodyl (Dulcolax 10 Mg Supp) 10 mg RC DAILY PRN PRN Reason: Constipation Stop: 12/05/17 21:31 Docusate Sodium (Colace) 100 mg PO DAILY [facility] Stop: 12/06/17 08:59 Last Admin: 10/10/17 08:47 Dose: 100 mg Famotidine (Pepcid) 20 mg PO DAILY [facility] Stop: 12/06/17 08:59 Last Admin: 10/10/17 08:47 Dose: 20 mg Gabapentin (Neurontin) 300 mg PO BID [facility] Stop: 12/06/17 08:59 Last Admin: 10/10/17 08:47 Dose: 300 mg Guaifenesin (Robitussin) 200 mg PO Q4HR PRN PRN Reason: Cough or Congestion Stop: 12/05/17 21:34 Heparin Sodium (Porcine) (Heparin) 5,000 units SUBQ Q12HR [facility] Stop: 12/06/17 08:59 Last Admin: 10/10/17 08:47 Dose: 5,000 units Levofloxacin (Levaquin Pb) 500 mg in 100 mls @ 100 mls/hr IV Q24HR [facility] Stop: 12/05/17 22:59 Last Admin: 10/09/17 23:38 Dose: 100 mls/hr Ipratropium [place] (Atrovent Neb 0.5mg/2.5ml) 0.5 mg HHN Q2HRT PRN PRN Reason: Shortness of Breath or Wheeze Stop: 09/03/18 21:34 Lactobacillus Rhamnosus (Culturelle 15b) 1 each PO DAILY [facility] Stop: 12/07/17 08:59 Last Admin: 10/10/17 08:47 Dose: 1 each Levetiracetam (Keppra) 500 mg PO BID [facility] Stop: 12/06/17 08:59 Last Admin: 10/10/17 08:47 Dose: 500 mg Levothyroxine Sodium (Synthroid) 0.05 mg PO QDAC [facility] Stop: 12/06/17 07:29 Last Admin: 10/10/17 06:54 Dose: 0.05 mg Lorazepam (Ativan) 0.5 mg PO Q6HR PRN; Protocol PRN Reason: Anxiety Stop: 12/05/17 21:31 Last Admin: 10/06/17 23:19 Dose: 0.5 mg Magnesium Hydroxide (Milk Of Magnesia) 30 ml PO DAILY PRN PRN Reason: Constipation Stop: 12/05/17 21:31 Miscellaneous (Probiotic Screen) 1 ea [facility] PRN PRN PRN Reason: PROTOCOL Stop: 12/06/17 10:14 Ondansetron HCl (Zofran) 4 mg IV Q8H PRN PRN Reason: Nausea / Vomiting Stop: 12/05/17 21:34 Risperidone (Risperdal) 1 mg PO BID [facility]; Protocol Stop: 12/06/17 08:59 Last Admin: 10/10/17 08:47 Dose: 1 mg Senna (Senna) 8.6 mg PO HS [facility] Stop: 12/06/17 20:59 Last Admin: 10/09/17 21:23 Dose: 8.6 mg General: demented, appears older HEENT: NC/AT, PERRLA Neck: Supple, No LAD Lungs: congested, ronchi Cardiovascular: RRR, Normal S1, Normal S2, with murmur Abdomen: soft, globular, positive bowel sound Extremities: excoriation, ecchymosis (l elbow), deformity Internal Medicine Assmt/Plan - Assessment Assessment: Left elbow cellulitis mild protein calorie malnutrition hypothyroid Parkinson's seizures right eye syndrome, major depression. - Plan Plan: continue with ivabx follow up labs in am continue current plan of care
--- NOTE | 2017-10-10 12:05 | Internal Medicine Prog Note ---
Internal Medicine Subjective - Subjective Service Date: 10/10/17 (DC SUMMARY [id number]) Patient is:: asleep, non-verbal, non-interactive, eyes closed, in bed Patient Complaints of:: congestion Per staff patient has:: no adverse event, no episodes of fall, poor appetite, agitated, noncompliant Internal Medicine Objective - Results Result Diagrams: 10/08/17 04:40 10/08/17 04:40 Recent Labs: Laboratory Last Values WBC 6.1 Th/cmm (4.8-10.8) 10/08/17 04:40 RBC 4.55 Mil/cmm (3.80-5.80) 10/08/17 04:40 Hgb 14.8 gm/dL (12-16) 10/08/17 04:40 Hct 43.5 % (41.0-60) 10/08/17 04:40 MCV 95.5 fl (80-99) 10/08/17 04:40 MCH 32.5 pg (27.0-31.0) H 10/08/17 04:40 MCHC Differential 34.0 pg (28.0-36.0) 10/08/17 04:40 RDW 13.0 % (11.5-20.0) 10/08/17 04:40 Plt Count 198 Th/cmm (150-400) 10/08/17 04:40 MPV 8.5 fl 10/08/17 04:40 Neutrophils % 55.4 % (40.0-80.0) 10/08/17 04:40 Lymphocytes % 35.4 % (20.0-50.0) 10/08/17 04:40 Monocytes % 7.4 % (2.0-10.0) 10/08/17 04:40 Eosinophils % 1.0 % (0.0-5.0) 10/08/17 04:40 Basophils % 0.8 % (0.0-2.0) 10/08/17 04:40 ESR 1 mm/hr (0-20) 10/07/17 06:00 Sodium 140 mEq/L (136-145) 10/08/17 04:40 Potassium 3.5 mEq/L (3.5-5.1) 10/08/17 04:40 Chloride 104 mEq/L (98-107) 10/08/17 04:40 Carbon Dioxide 25.1 mEq/L (21.0-31.0) 10/08/17 04:40 Anion Gap 14.4 (7.0-16.0) 10/08/17 04:40 BUN 20 mg/dL (7-25) 10/08/17 04:40 Creatinine 1.0 mg/dL (0.7-1.3) 10/08/17 04:40 Est GFR ( Amer) TNP 10/08/17 04:40 Est GFR (Non-Af Amer) TNP 10/08/17 04:40 BUN/Creatinine Ratio 20.0 10/08/17 04:40 Glucose 93 mg/dL (70-105) 10/08/17 04:40 Calcium 9.9 mg/dL (8.6-10.3) 10/08/17 04:40 Total Bilirubin 0.3 mg/dL (0.3-1.0) 10/06/17 19:40 AST 19 U/L (13-39) 10/06/17 19:40 ALT 15 U/L (7-52) 10/06/17 19:40 Alkaline Phosphatase 70 U/L (34-104) 10/06/17 19:40 Ammonia 41 umol/L (16-53) 10/07/17 06:00 B-Natriuretic Peptide 74.0 pg/mL (5.0-100.0) 10/07/17 06:00 Total Protein 6.4 gm/dL (6.0-8.3) 10/06/17 19:40 Albumin 3.8 gm/dL (4.2-5.5) L 10/06/17 19:40 Globulin 2.6 gm/dL 10/06/17 19:40 Albumin/Globulin Ratio 1.5 (1.0-1.8) 10/06/17 19:40 Vitamin B12 547 pg/mL (232-1245) 10/07/17 06:00 Folic Acid 16.3 ng/mL (>3.0) 10/07/17 06:00 TSH 3.08 uIU/ml (0.34-5.60) 10/07/17 06:00 Urine Source CATH 10/09/17 18:40 Urine Color YELLOW 10/09/17 18:40 Urine Clarity CLEAR (CLEAR) 10/09/17 18:40 Urine pH 6.0 (4.6 - 8.0) 10/09/17 18:40 Ur Specific [place] >= 1.030 (1.005-1.030) 10/09/17 18:40 Urine Protein TRACE mg/dL (NEGATIVE) 10/09/17 18:40 Urine Glucose (UA) NEGATIVE mg/dL (NEGATIVE) 10/09/17 18:40 Urine Ketones TRACE mg/dL (NEGATIVE) 10/09/17 18:40 Urine Blood NEGATIVE (NEGATIVE) 10/09/17 18:40 Urine Nitrate NEGATIVE (NEGATIVE) 10/09/17 18:40 Urine Bilirubin NEGATIVE (NEGATIVE) 10/09/17 18:40 Urine Urobilinogen 0.2 E.U./dL (0.2 - 1.0) 10/09/17 18:40 Ur Leukocyte Esterase NEGATIVE (NEGATIVE) 10/09/17 18:40 Urine RBC 0-2 /hpf (0-5) H 10/09/17 18:40 Urine WBC 2-5 /hpf (0-5) 10/09/17 18:40 Ur Epithelial Cells FEW /lpf (FEW) 10/09/17 18:40 Urine Bacteria FEW /hpf (NONE SEEN) 10/09/17 18:40 - Physical Exam Vitals and I&O: Vital Signs Temp 96.2 F 10/10/17 07:42 Pulse 77 10/10/17 07:42 Resp 19 10/10/17 07:42 BP 120/69 10/10/17 07:42 Pulse Ox 100 10/10/17 07:42 Intake & Output 10/09/17 10/10/17 10/10/17 18:59 06:59 18:59 Intake Total 850 Output Total 260 Balance 590 Weight (lbs) 136 lb 8 oz 136 lb 8 oz Intake: Oral 850 Output: Urine 260 Other: # Voids 0 2 # Bowel Movements 0 1 Weight Source Bedscale Bedscale Active Medications: Current Medications Acetaminophen (Tylenol) 650 mg PO Q6HR PRN PRN Reason: Pain or Fever >101 Stop: 12/05/17 21:31 Acetaminophen/Hydrocodone Bitart ([place] 5mg/325mg) 1 tab PO Q6H PRN PRN Reason: Pain (Severe), LEVEL 7-10 Stop: 12/05/17 21:31 Al Hydrox/Mg Hydrox/Simethicone (Maalox) 30 ml PO Q4HR PRN PRN Reason: GI DISTRESS Stop: 12/05/17 21:31 Albuterol Sulfate (Albuterol 2.5mg/3ml Neb Ud) 2.5 mg HHN Q2HRT PRN PRN Reason: Shortness of Breath or Wheeze Stop: 12/05/17 21:34 Artificial Tears (Artificial Tears Ophth Soln) 1 drop EACH EYE BID [facility] Stop: 12/06/17 08:59 Last Admin: 10/10/17 08:48 Dose: 1 drop Benztropine Mesylate (Cogentin) 0.5 mg PO BID [facility] Stop: 12/06/17 08:59 Last Admin: 10/10/17 08:47 Dose: 0.5 mg Bisacodyl (Dulcolax 10 Mg Supp) 10 mg RC DAILY PRN PRN Reason: Constipation Stop: 12/05/17 21:31 Docusate Sodium (Colace) 100 mg PO DAILY [facility] Stop: 12/06/17 08:59 Last Admin: 10/10/17 08:47 Dose: 100 mg Famotidine (Pepcid) 20 mg PO DAILY [facility] Stop: 12/06/17 08:59 Last Admin: 10/10/17 08:47 Dose: 20 mg Gabapentin (Neurontin) 300 mg PO BID [facility] Stop: 12/06/17 08:59 Last Admin: 10/10/17 08:47 Dose: 300 mg Guaifenesin (Robitussin) 200 mg PO Q4HR PRN PRN Reason: Cough or Congestion Stop: 12/05/17 21:34 Heparin Sodium (Porcine) (Heparin) 5,000 units SUBQ Q12HR [facility] Stop: 12/06/17 08:59 Last Admin: 10/10/17 08:47 Dose: 5,000 units Levofloxacin (Levaquin Pb) 500 mg in 100 mls @ 100 mls/hr IV Q24HR [facility] Stop: 12/05/17 22:59 Last Admin: 10/09/17 23:38 Dose: 100 mls/hr Ipratropium [place] (Atrovent Neb 0.5mg/2.5ml) 0.5 mg HHN Q2HRT PRN PRN Reason: Shortness of Breath or Wheeze Stop: 12/05/17 21:34 Lactobacillus Rhamnosus (Culturelle 15b) 1 each PO DAILY [facility] Stop: 12/07/17 08:59 Last Admin: 10/10/17 08:47 Dose: 1 each Levetiracetam (Keppra) 500 mg PO BID [facility] Stop: 12/06/17 08:59 Last Admin: 10/10/17 08:47 Dose: 500 mg Levothyroxine Sodium (Synthroid) 0.05 mg PO QDAC [facility] Stop: 12/06/17 07:29 Last Admin: 10/10/17 06:54 Dose: 0.05 mg Lorazepam (Ativan) 0.5 mg PO Q6HR PRN; Protocol PRN Reason: Anxiety Stop: 12/05/17 21:31 Last Admin: 10/06/17 23:19 Dose: 0.5 mg Magnesium Hydroxide (Milk Of Magnesia) 30 ml PO DAILY PRN PRN Reason: Constipation Stop: 12/05/17 21:31 Miscellaneous (Probiotic Screen) 1 ea [facility] PRN PRN PRN Reason: PROTOCOL Stop: 12/06/17 10:14 Ondansetron HCl (Zofran) 4 mg IV Q8H PRN PRN Reason: Nausea / Vomiting Stop: 12/05/17 21:34 Risperidone (Risperdal) 1 mg PO BID [facility]; Protocol Stop: 12/06/17 08:59 Last Admin: 10/10/17 08:47 Dose: 1 mg Senna (Senna) 8.6 mg PO HS [facility] Stop: 12/06/17 20:59 Last Admin: 10/09/17 21:23 Dose: 8.6 mg General: demented, appears older HEENT: NC/AT, PERRLA Neck: Supple, No LAD Lungs: congested, ronchi Cardiovascular: RRR, Normal S1, Normal S2, with murmur Abdomen: soft, globular, positive bowel sound Extremities: excoriation, ecchymosis (l elbow), deformity Internal Medicine Assmt/Plan - Assessment Assessment: Left elbow cellulitis mild protein calorie malnutrition hypothyroid Parkinson's seizures right eye syndrome, major depression. - Plan Plan: continue with ivabx follow up labs in am continue current plan of care
--- NOTE | 2017-10-10 16:22 | Discharge Summary ---
DATE OF DISCHARGE: 10/10/2017 DISCHARGE DATE: 10/10/2017. DISCHARGE DIAGNOSES: Left elbow cellulitis, which has been treated, mild protein-calorie malnutrition, hypothyroidism, Parkinson, seizures, right eye syndrome, major depression. HISTORY OF PRESENT ILLNESS: A 72-year-old half-way resident, admitted to the Med/Surg unit for intermittent swelling of his left arm and right foot for the last 2 weeks. The patient had a venous Doppler done on 10/03/2017 negative for any DVT. For further management, the patient was admitted. PHYSICAL EXAMINATION: GENERAL: Elderly male, awake, alert with some confusion. No apparent distress. VITAL SIGNS: Stable. HEENT: Head normocephalic, atraumatic. NECK: Supple. No mass. LUNGS: Clear bilaterally. ABDOMEN: Soft, nontender. HOSPITAL COURSE: During the hospital stay, the patient was admitted to the med/surg unit. The patient was on empiric IV antibiotics of Levaquin 500 mg IV every 24 hours. The patient's WBCs have been within normal limits. The patient has been afebrile. For this reason, the patient was stable for discharge. CONDITION UPON DISCHARGE: Fair. DISPOSITION: [facility]. JOB# [id number]
--- NOTE | 2017-10-10 18:31 | Cardiology ---
10/08/2017 PATIENT OF: Dr. Constantino. M-MODE ECHOCARDIOGRAM: Mitral valve, anterior leaflet of mitral valve shows normal excursion, EF velocity. Posterior leaflet of the mitral valve shows normal excursion. Left ventricular posterior wall shows increased thickness, normal excursion. Interventricular septum shows increased thickness, normal excursion. Ejection fraction 65%. Left atrium normal. Aortic root shows normal dimension, normal excursion of aortic leaflets. CONCLUSION: Hypertrophy of the left ventricle, ejection fraction 65%. 2D ECHO: Long axis view show normal size left ventricle with hypertrophy of the left ventricle. Left atrium normal. Aortic root shows normal dimension, normal excursion of aortic leaflets. Short axis view of mitral valve normal. Short axis view of aortic valve normal. Apical four chamber view showed normal sized left ventricle, left atrium, right ventricle, right atrium, tricuspid and mitral valve, hypertrophy of the left ventricle, ejection fraction 65%. Doppler study shows trace mitral regurgitation, trace tricuspid regurgitation, right ventricular systolic pressure 21 mmHg. [facility]# [id number]
== END 2017-10-10 18:00 | DRG 383 ==
LOC: ER 19:11 → MSI 21:35
PROVIDERS: ADMIT Internal Medicine; ATTEND Internal Medicine
DX: L03.114 Cellulitis of left upper limb (principal); L03.115 Cellulitis of right lower limb; E44.1 Mild protein-calorie malnutrition; G20 Parkinson's disease; G40.909 Epilepsy, unspecified, not intractable, without status epilepticus; E03.9 Hypothyroidism, unspecified; F32.9 Major depressive disorder, single episode, unspecified; F29 Unspecified psychosis not due to a substance or known physiological condition; Z68.24 Body mass index [BMI] 24.0-24.9, adult
CPT/HCPCS: 36415-UA; 71045-TC; 80048-TC; 80053-TC; 81001-TC; 82140-TC; 82607-90; 82746-90; 83880-TC; 84443-TC; 85025-TC; 85652-TC; 94760; J1644; J1956; Z7610

== ENCOUNTER 2017-11-28 20:37 | Inpatient (IN) | payer MEDICAID ==
[2017-11-28 21:05] LABS: % BASOPHILS 0.7 % (0.0-2.0); % EOSINOPHILS 5.5 % (0.0-5.0); % LYMPHOCYTES 30.5 % (20.0-50.0); % MONOCYTES 8.5 % (2.0-10.0); % NEUTROPHILS 54.8 % (40.0-80.0); EOSINOPHILE ABSOLUTE 0.3 Th/cmm (0.1-0.4); HEMATOCRIT 41.5 % (41.0-60); LYMPHOCYTE ABSOLUTE 1.5 Th/cmm (1.5-3.0); MEAN CELL VOLUME 95.4 fl (80-99); MEAN CORPUSCULAR HEMOGLOBIN 32.2 pg (27.0-31.0); MEAN CORPUSCULAR HGB CONC 33.8 pg (28.0-36.0); MEAN PLATELET VOLUME 8.6 fl; MONOCYTE ABSOLUTE 0.4 Th/cmm (0.3-1.0); NEUTROPHILE ABSOLUTE 2.8 Th/cmm (1.8-8.0); PLATELET COUNT 202 Th/cmm (150-400); RED BLOOD COUNT 4.35 Mil/cmm (3.80-5.80); RED CELL DISTRIBUTION WIDTH 13.1 % (11.5-20.0)
[2017-11-28] MEDS ORDERED: Lactated Ringer 1,000 ML IV ONE (21:17)
[2017-11-28 21:18] LABS: ALB/GLOB RATIO 1.3 (1.0-1.8); ALBUMIN 3.7 gm/dL (4.2-5.5); ALKALINE PHOSPHATASE 72 U/L (34-104); ANION GAP 10.2 (7.0-16.0); BILIRUBIN,TOTAL 0.3 mg/dL (0.3-1.0); BUN - UREA NITROGEN 23 mg/dL (7-25); CALCIUM SERUM 8.7 mg/dL (8.6-10.3); CARBON DIOXIDE 26.6 mEq/L (21.0-31.0); CHLORIDE 104 mEq/L (98-107); CREATININE - SERUM 0.8 mg/dL (0.7-1.3); GLUCOSE 115 mg/dL (70-105); MAGNESIUM 2.5 mg/dL (1.9-2.7); PHOSPHOROUS 3.5 mg/dL (2.5-5.0); POTASSIUM SERUM 3.8 mEq/L (3.5-5.1); SGOT 18 U/L (13-39); SGPT/ALT 12 U/L (7-52); SODIUM SERUM 137 mEq/L (136-145); TOTAL PROTEIN,SERUM 6.6 gm/dL (6.0-8.3)
--- NOTE | 2017-11-28 21:31 | ED Physician Chart ---
ED Chief Complaint/HPI - Patient Information Date Seen:: 11/28/17 Time Seen:: 20:40 Chief Complaint:: Increase in agitation. History of Present Illness:: Increase in agitation. Going to patient's rooms. Poor appetite. Allergies:: Allergies Allergy/AdvReac Type Severity Reaction Status Date / Time Penicillins Allergy Verified 11/28/17 20:53 Vitals:: Vital Signs - 8 hr 11/28/17 20:40 Temp 97.9 F HR 62 RR 16 BP 110/64 O2 Sat % 95 Historian:: Medical Records Review:: Transfer documents Reviewed ED Review of Systems - Review of Systems General/Constitutional: No fever, No chills, No weight loss, No weakness, No diaphoresis, No edema, No loss of appetite Skin: No skin lesions, No rash, No bruising Head: No headache, No light-headedness Eyes: No loss of vision, No pain, No diplopia ENT: No earache, No nasal drainage, No sore throat, No tinnitus Neck: No neck pain, No swelling, No thyromegaly, No stiffness, No mass noted Cardio Vascular: No chest pain, No palpitations, No PND, No orthopnea, No edema Pulmonary: No SOB, No cough, No sputum, No wheezing GI: No nausea, No vomiting, No diarrhea, No pain, No melena, No hematochezia, No constipation, No hematemesis, Other (poor appetite and oral intake) G/U: No dysuria, No frequency, No hematuria Musculoskeletal: No bone or joint pain, No back pain, No muscle pain Endocrine: No polyuria, No polydipsia Psychiatric: Other (increased agitation. walking into other patient's rooms.) Hematopoietic: No bruising, No lymphadenopathy Allergic/Immuno: No urticaria, No angioedema Neurological: No syncope, No focal symptoms, No weakness, No paresthesia, No headache, No seizure, No dizziness, No confusion, No vertigo ED Past Medical History - Past Medical History Past Medical History: HTN, PUD/GERD, Seizures, Thyroid disorder, Other ( parkinson's disease; epilepsy; peripheral autonomic neuropathy) Psychiatricy History: Schizophrenia, Dementia, Other (anxiety disorders; insomnia) Family Medical History - Family Member Mother History Unknown: Yes Ethnicity: ED Physical Exam - Physical Examination General/Constitutional: Awake Other Gen/Cons comments:: chronically ill appearing. Head: Atraumatic Eyes: Lids, conjuctiva normal, PERRL, EOMI Skin: Nl inspection, No rash, No skin lesions, No ecchymosis, Well hydrated, No lymphadenopathy Other Skin comments:: dry oral mucosa. Old scarring on left hip from a previous Other ENMT comments:: dry mucous membranes. Neck: Nontender, Full ROM w/o pain, No nuchal rigidity, No mass, No stridor Respiratory: Nl effort/Exclusion, Clear to Auscultation, No Wheeze/Rhonchi/Rales Cardio Vascular: RRR, No murmur, gallop, rubs, NL S1 S2 GI: No tenderness/rebounding/guarding, No organomegaly, No hernia, Normal BS's, Nondistended, No mass/bruits, No McBurney tenderness Extremities: No tenderness or effusion, Full ROM, No edema, Normal digits & nails Other Extremities comments:: R hand wasting. L knee with loss of epidermis that measures 4 cm x 3.5 cm in size. Dressing in place. No s/s of infection. Neuro/Psych: Mood normal Other Neuro/Psych comments:: blunted affect. R hand wasting. Moves all extremities, but weak. Misc: Normal back, No paraspinal tenderness ED Labs/Radiology/EKG Results - Lab Results Results: Laboratory Tests 11/28/17 11/28/17 20:58 20:58 WBC 5.0 RBC 4.35 Hgb 14.0 Hct 41.5 MCV 95.4 MCH 32.2 H MCHC Differential 33.8 RDW 13.1 Plt Count 202 MPV 8.6 Neutrophils % 54.8 Lymphocytes % 30.5 Monocytes % 8.5 Eosinophils % 5.5 H Basophils % 0.7 Sodium 137 Potassium 3.8 Chloride 104 Carbon Dioxide 26.6 Anion Gap 10.2 BUN 23 Creatinine 0.8 Est GFR ( Amer) TNP Est GFR (Non-Af Amer) TNP BUN/Creatinine Ratio 28.8 Glucose 115 H Calcium 8.7 Phosphorus 3.5 Magnesium 2.5 Total Bilirubin 0.3 AST 18 ALT 12 Alkaline Phosphatase 72 Total Protein 6.6 Albumin 3.7 L Globulin 2.9 Albumin/Globulin Ratio 1.3 ED Assessment - Assessment General Assessment: resting comfortably. Assessment/Comments:: called Dr. Dougie at 10:35 who answered at 10:47 p.m. Presented case. Patient to be admitted for IV hydration. We will perform an in and out catheter in the emergency room and send for UA. ED Septic Shock - . Is Septic Shock (SBP<90, OR Lactate>4 mmol\L) present?: No - <6hrs of presentation: Vital Signs: Vital Signs - 8 hr 11/28/ 20:40 Temp 97.9 F HR 62 RR 16 BP 110/64 O2 Sat % 95 ED Reassessment (Disposition) - Reassessment Reassessment Condition:: Unchanged - Diagnosis Diagnosis:: Dehydration with dry mucous membranes Poor appetite Increase in agitation. Dementia Anxiety Insomnia Schizophrenia Parkinson's disease Hypertension Epilepsy Hypothyroidism GERD Neuropathy Seizure Disorder - Patient Disposition Discharge/Transfer:: Acute Care w/in this hosp
[2017-11-28] MEDS ORDERED: Magnesium Hydroxide (MOM) 30 mL UDC PO PRN (23:08)
[2017-11-28] MEDS ORDERED: Ipratropium Neb 0.5 mg/2.5 mL UD HHN PRN (23:10)
[2017-11-28] MEDS ORDERED: Maalox 30 mL Cup PO PRN (23:10)
[2017-11-28] MEDS ORDERED: Albuterol Nebulizer 2.5mg/3mL HHN PRN (23:10)
[2017-11-28 23:24] LABS: URINE SOURCE CLEAN C
[2017-11-28 23:29] LABS: URINE BILIRUBIN NEGATIVE (NEGATIVE); URINE BLOOD NEGATIVE (NEGATIVE); URINE GLUCOSE (UA) NEGATIVE (NEGATIVE); URINE KETONE NEGATIVE (NEGATIVE); URINE LEUKOCYTE ESTERASE NEGATIVE (NEGATIVE); URINE NITRATE NEGATIVE (NEGATIVE); URINE PROTEIN NEGATIVE (NEGATIVE); URINE UROBILINOGEN 0.2 E.U./dL (0.2 - 1.0)
[2017-11-28 23:35] LABS: URINE CLARITY CLEAR (CLEAR); URINE COLOR YELLOW
[2017-11-28 23:36] LABS: URINE MICROSCOPIC INDICATED? NO
[2017-11-28 23:45] LABS: AMPHETAMINE URINE NEGATIVE (NEGATIVE); BARBITURATES URINE NEGATIVE (NEGATIVE); BENZODIAZEPINES QUAL URINE POSITIVE (NEGATIVE); CANNABINOID THC NEGATIVE (NEGATIVE); COCAINE METABOLITE QUAL URINE NEGATIVE (NEGATIVE); METHADONE URINE NEGATIVE (NEGATIVE); METHAMPHETAMINES QUAL URINE NEGATIVE (NEGATIVE); OPIATES (MORPHINE) QUAL. URINE NEGATIVE (NEGATIVE); PHENCYCLIDINE (PCP) URINE NEGATIVE (NEGATIVE); TRICYCLICS (TCA) QUAL. URINE NEGATIVE (NEGATIVE)
[2017-11-29] MEDS: D5-0.9%NS 1,000 ML IV SCH ×2 (01:30→21:01)
[2017-11-29 06:41] VITALS: BP 124/70
[2017-11-29] MEDS: Levothyroxine 0.05 Mg Tab PO SCH (07:57)
[2017-11-29] MEDS ORDERED: NUTRITIONAL SUPPLEMENT PO SCH (09:00)
[2017-11-29] MEDS: guaiFENesin 200 MG/10 ML UDC PO PRN (10:23)
[2017-11-29] MEDS: Polyvinyl Alcohol Ophth Soln 15 mL Bottle EACH EYE SCH (10:40)
--- NOTE | 2017-11-29 14:38 | History & Physical ---
ADMIT DATE: 11/29/2017 CHIEF COMPLAINT: The patient is not eating and not taking medication. HISTORY OF PRESENT ILLNESS: This is an unfortunate 72-year-old male with history of Parkinson's dementia, seizure, hypothyroidism, GERD, admitted from the nursing facility secondary to not eating for several days, not taking his medication. The patient was seen in the ER and admitted for further management. The patient is dehydrated. PAST MEDICAL HISTORY: As mentioned in the history present illness. PAST SURGICAL HISTORY: Unable to obtain. ALLERGIES: PENICILLIN. MEDICATIONS: The patient is on Sinemet, Colace, Tylenol, ____ gabapentin, famotidine, Keppra, lorazepam, temazepam. FAMILY HISTORY: Noncontributory. SOCIAL HISTORY: The patient is a [facility] patient requiring 24-hour total care. REVIEW OF SYSTEMS: This is limited secondary to pain, comatose state. We will try to obtain more detailed review of system at a later date by talking to family members. Drake Oconnor is a son, and there is a daughter, Viri Oconnor, . We will also try to get information from nursing staff at [facility] [phone] as well as the patient's psychiatrist. PHYSICAL EXAMINATION: VITAL SIGNS: Blood pressure 105/53, respirations 17, pulse 64, temperature 97.5. GENERAL: Elderly male, appears chronically ill. NECK: Supple. No mass. LUNGS: Equal breath sounds, few rhonchi. HEART: Regular rate and rhythm without systolic ejection murmur. ABDOMEN: Soft, globular. EXTREMITIES: Positive excoriation. NEUROLOGIC: Limited. LABORATORY DATA: WBC of 5, hemoglobin 14, platelets 202. Sodium 137, potassium 3.8, BUN 22, creatinine 0.8, blood sugar 115. Albumin 3.7. There was unknown possible benzos. ASSESSMENT AND PLAN: Dehydration, failure to thrive, dysphagia, increased agitation, Parkinson's, seizure, hypothyroidism, gastroesophageal reflux disease, schizoaffective disorder. Continue patient on oxygen and bronchodilator treatments. The patient is on one-to-one along with Psychiatry to evaluate. The patient will have Neurology as well. We will continue to monitor the patient closely. JOB# [id number]
--- NOTE | 2017-11-30 01:05 | Consultation ---
DATE OF CONSULTATION: 11/29/2017 HISTORY OF PRESENT ILLNESS: The patient is a 72-year-old in nursing facility. The patient is not eating or taking medications. Staff tells me that if we put the medicine in the patient's food, he will feed himself when nobody is looking. The patient is able to swallow. The patient has underlying history of Parkinson's, on Sinemet. For seizures, the patient is on Keppra. Dementia. The patient also has psychiatric illness. He is on number of medications including ____ temazepam. He has a history of hypothyroidism. PAST MEDICAL HISTORY: As above. SURGERIES: None recently. ALLERGIES: PENICILLIN. MEDICATIONS: As above and per reconciliation. SOCIAL HISTORY: Does not smoke or drink. REVIEW OF SYSTEMS: The patient is awake. He will follow simple instructions. Unable to ____, but no seizures here. Able to swallow. The patient is moving extremities. Tremor in both face, jaw, and extremities. The patient is very stiff and limited movement. PHYSICAL EXAMINATION: VITAL SIGNS: Temperature 98.2, blood pressure 110/58, and pulse is 66. NECK: Supple, no bruits. HEART: Sounds S1, S2. LUNGS: Clear. NEUROLOGIC: The patient is awake. The patient gives me his name. The patient mumbles. The patient is unable to give me the day, month, or year. CRANIAL: Pupils are reactive to light. Eyes, will look to the right and left, will look up. Face tremor. Immobile. MOTOR: The patient has increased tone and rigidity. Some cogwheeling. The patient's tremor may be tremor with some action tremor. Will lift arms up. Will lift legs up. Reflexes: About 1. Knees are -1 to 1. Ankles, difficult to get. INVESTIGATIONS: No CT scan or such. LABORATORY DATA: WBC is 5.0 and hemoglobin 14.0. Sodium and potassium okay. UA is negative. IMPRESSION: 1. Encephalopathy. 2. Parkinson. 3. Seizures. 4. Hypothyroidism. 5. Psychosis. 6. Dementia. PLAN: We will plan to go ahead and continue with Sinemet 25/100 mg b.i.d. Keppra, we can change it over to IV. We will discontinue gabapentin. Try to hold off ____ if possible. Physical therapy, further workup depending on the progress. [facility]# [id number]
[2017-11-30] MEDS: guaiFENesin 200 MG/10 ML UDC PO PRN (02:32)
[2017-11-30 05:33] LABS: % BASOPHILS 0.4 % (0.0-2.0); % EOSINOPHILS 1.5 % (0.0-5.0); % LYMPHOCYTES 31.9 % (20.0-50.0); % MONOCYTES 7.8 % (2.0-10.0); % NEUTROPHILS 58.4 % (40.0-80.0); EOSINOPHILE ABSOLUTE 0.1 Th/cmm (0.1-0.4); HEMATOCRIT 39.4 % (41.0-60); HEMOGLOBIN 13.6 gm/dL (12-16); LYMPHOCYTE ABSOLUTE 2.1 Th/cmm (1.5-3.0); MEAN CELL VOLUME 94.5 fl (80-99); MEAN CORPUSCULAR HEMOGLOBIN 32.6 pg (27.0-31.0); MEAN CORPUSCULAR HGB CONC 34.5 pg (28.0-36.0); MEAN PLATELET VOLUME 9.1 fl; MONOCYTE ABSOLUTE 0.5 Th/cmm (0.3-1.0); NEUTROPHILE ABSOLUTE 3.9 Th/cmm (1.8-8.0); PLATELET COUNT 172 Th/cmm (150-400); RED BLOOD COUNT 4.17 Mil/cmm (3.80-5.80); RED CELL DISTRIBUTION WIDTH 12.6 % (11.5-20.0); WHITE BLOOD COUNT 6.6 Th/cmm (4.8-10.8)
[2017-11-30 05:46] LABS: ALB/GLOB RATIO 1.2 (1.0-1.8); ALBUMIN 3.5 gm/dL (4.2-5.5); ALKALINE PHOSPHATASE 69 U/L (34-104); ANION GAP 10.3 (7.0-16.0); BILIRUBIN,TOTAL 0.5 mg/dL (0.3-1.0); BUN - UREA NITROGEN 12 mg/dL (7-25); CALCIUM SERUM 8.9 mg/dL (8.6-10.3); CARBON DIOXIDE 24.3 mEq/L (21.0-31.0); CHLORIDE 109 mEq/L (98-107); CREATININE - SERUM 0.8 mg/dL (0.7-1.3); GLUCOSE 91 mg/dL (70-105); POTASSIUM SERUM 3.6 mEq/L (3.5-5.1); SGOT 15 U/L (13-39); SGPT/ALT 3 U/L (7-52); SODIUM SERUM 140 mEq/L (136-145); TOTAL PROTEIN,SERUM 6.5 gm/dL (6.0-8.3)
[2017-11-30] MEDS: Levothyroxine 0.05 Mg Tab PO SCH (06:51)
[2017-11-30] MEDS: Polyvinyl Alcohol Ophth Soln 15 mL Bottle EACH EYE SCH ×2 (09:51→16:47)
[2017-11-30] MEDS: D5-0.9%NS 1,000 ML IV SCH (09:51)
--- NOTE | 2017-11-30 13:43 | Internal Medicine Prog Note ---
Internal Medicine Subjective - Subjective Service Date: 11/30/17 Patient seen and examined:: with staff Patient is:: awake Per staff patient has:: tolerating meds Internal Medicine Objective - Results Result Diagrams: 11/30/17 05:15 11/30/17 05:15 Recent Labs: Laboratory Last Values WBC 6.6 Th/cmm (4.8-10.8) 11/30/17 05:15 RBC 4.17 Mil/cmm (3.80-5.80) 11/30/17 05:15 Hgb 13.6 gm/dL (12-16) 11/30/17 05:15 Hct 39.4 % (41.0-60) L 11/30/17 05:15 MCV 94.5 fl (80-99) 11/30/17 05:15 MCH 32.6 pg (27.0-31.0) H 11/30/17 05:15 MCHC Differential 34.5 pg (28.0-36.0) 11/30/17 05:15 RDW 12.6 % (11.5-20.0) 11/30/17 05:15 Plt Count 172 Th/cmm (150-400) 11/30/17 05:15 MPV 9.1 fl 11/30/17 05:15 Neutrophils % 58.4 % (40.0-80.0) 11/30/17 05:15 Lymphocytes % 31.9 % (20.0-50.0) 11/30/17 05:15 Monocytes % 7.8 % (2.0-10.0) 11/30/17 05:15 Eosinophils % 1.5 % (0.0-5.0) 11/30/17 05:15 Basophils % 0.4 % (0.0-2.0) 11/30/17 05:15 Sodium 140 mEq/L (136-145) 11/30/17 05:15 Potassium 3.6 mEq/L (3.5-5.1) 11/30/17 05:15 Chloride 109 mEq/L (98-107) H 11/30/17 05:15 Carbon Dioxide 24.3 mEq/L (21.0-31.0) 11/30/17 05:15 Anion Gap 10.3 (7.0-16.0) 11/30/17 05:15 BUN 12 mg/dL (7-25) 11/30/17 05:15 Creatinine 0.8 mg/dL (0.7-1.3) 11/30/17 05:15 Est GFR ( Amer) TNP 11/30/17 05:15 Est GFR (Non-Af Amer) TNP 11/30/17 05:15 BUN/Creatinine Ratio 15.0 11/30/17 05:15 Glucose 91 mg/dL (70-105) 11/30/17 05:15 POC Glucose 104 MG/DL (70 - 105) 11/29/17 23:46 Calcium 8.9 mg/dL (8.6-10.3) 11/30/17 05:15 Phosphorus 3.5 mg/dL (2.5-5.0) 11/28/17 20:58 Magnesium 2.5 mg/dL (1.9-2.7) 11/28/17 20:58 Total Bilirubin 0.5 mg/dL (0.3-1.0) 11/30/17 05:15 AST 15 U/L (13-39) 11/30/17 05:15 ALT 3 U/L (7-52) L 11/30/17 05:15 Alkaline Phosphatase 69 U/L (34-104) 11/30/17 05:15 Ammonia 29 umol/L (16-53) 11/30/17 05:15 B-Natriuretic Peptide 69.0 pg/mL (5.0-100.0) 11/30/17 05:15 Total Protein 6.5 gm/dL (6.0-8.3) 11/30/17 05:15 Albumin 3.5 gm/dL (4.2-5.5) L 11/30/17 05:15 Globulin 3.0 gm/dL 11/30/17 05:15 Albumin/Globulin Ratio 1.2 (1.0-1.8) 11/30/17 05:15 TSH 4.67 uIU/ml (0.34-5.60) 11/28/17 20:58 Urine Source CLEAN C 11/28/17 23:00 Urine Color YELLOW 11/28/17 23:00 Urine Clarity CLEAR (CLEAR) 11/28/17 23:00 Urine pH 7.0 (4.6 - 8.0) 11/28/17 23:00 Ur Specific [place] 1.010 (1.005-1.030) 11/28/17 23:00 Urine Protein NEGATIVE mg/dL (NEGATIVE) 11/28/17 23:00 Urine Glucose (UA) NEGATIVE mg/dL (NEGATIVE) 11/28/17 23:00 Urine Ketones NEGATIVE mg/dL (NEGATIVE) 11/28/17 23:00 Urine Blood NEGATIVE (NEGATIVE) 11/28/17 23:00 Urine Nitrate NEGATIVE (NEGATIVE) 11/28/17 23:00 Urine Bilirubin NEGATIVE (NEGATIVE) 11/28/17 23:00 Urine Urobilinogen 0.2 E.U./dL (0.2 - 1.0) 11/28/17 23:00 Ur Leukocyte Esterase NEGATIVE (NEGATIVE) 11/28/17 23:00 Urine Opiates Screen NEGATIVE (NEGATIVE) 11/28/17 23:00 Urine Methadone Screen NEGATIVE (NEGATIVE) 11/28/17 23:00 Ur Barbiturates Screen NEGATIVE (NEGATIVE) 11/28/17 23:00 Ur Tricyclics Screen NEGATIVE (NEGATIVE) 11/28/17 23:00 Ur Phencyclidine Scrn NEGATIVE (NEGATIVE) 11/28/17 23:00 Amphetamines Screen NEGATIVE (NEGATIVE) 11/28/17 23:00 U Methamphetamines Scrn NEGATIVE (NEGATIVE) 11/28/17 23:00 U Benzodiazepines Scrn POSITIVE (NEGATIVE) H 11/28/17 23:00 U Cocaine Metab Screen NEGATIVE (NEGATIVE) 11/28/17 23:00 U Cannabinoids Screen NEGATIVE (NEGATIVE) 11/28/17 23:00 - Physical Exam Vitals and I&O: Vital Signs Temp 97.8 F 11/30/17 08:00 Pulse 59 11/30/17 08:00 Resp 18 11/30/17 08:00 BP 116/64 11/30/17 08:00 Pulse Ox 96 11/30/17 08:00 Intake & Output 11/29/17 11/30/17 11/30/17 18:59 06:59 18:59 Intake Total 1420 50 1000 Output Total 1100 Balance 827 06 1263 Weight (lbs) 159 lb 159 lb 3 oz Intake: Intake, IV Amount 1000 1000 D5-0.9%Ns 1,000 ml @ 80 1000 1000 mls/hr IV .[id number] [facility] Rx #:[id number] Oral 420 50 Output: Urine 1100 Other: # Voids 2 # Bowel Movements 1 Weight Source Bedscale Bedscale Active Medications: Current Medications Acetaminophen (Tylenol) 650 mg PO Q4H PRN PRN Reason: Pain Or Fever above 101 Stop: 01/27/18 23:09 Last Admin: 11/30/17 02:32 Dose: 650 mg Al Hydrox/Mg Hydrox/Simethicone (Maalox) 30 ml PO Q6H PRN PRN Reason: Dyspepsia Stop: 01/27/18 23:09 Albuterol Sulfate (Albuterol 2.5mg/3ml Neb Ud) 2.5 mg HHN Q2HRT PRN PRN Reason: Shortness of Breath or Wheeze Stop: 01/27/18 23:09 Last Admin: 11/30/17 00:26 Dose: 2.5 mg Artificial Tears (Artificial Tears Ophth Soln) 1 drop EACH EYE BID [facility] Stop: 01/28/18 08:59 Last Admin: 11/30/17 09:51 Dose: Not Given Carbidopa/Levodopa (Sinemet 25mg-100 Mg) 1 tab PO BID [facility] Stop: 01/28/18 16:59 Last Admin: 11/30/17 10:01 Dose: 1 tab Docusate Sodium (Colace) 100 mg PO BID [facility] Stop: 01/28/18 08:59 Last Admin: 11/30/17 10:02 Dose: 100 mg Famotidine (Pepcid) 20 mg PO DAILY [facility] Stop: 01/28/18 08:59 Last Admin: 11/30/17 10:01 Dose: 20 mg Guaifenesin (Robitussin) 200 mg PO Q4HR PRN PRN Reason: Cough or Congestion Stop: 01/27/18 23:09 Last Admin: 11/30/17 02:32 Dose: 200 mg Dextrose/Sodium Chloride (D5-0.9%Ns) 1,000 mls @ 80 mls/hr IV .[id number] [facility] Stop: 01/27/18 23:14 Last Admin: 11/30/17 09:51 Dose: 80 mls/hr Ipratropium [place] (Atrovent Neb 0.5mg/2.5ml) 0.5 mg HHN Q2HRT PRN PRN Reason: Shortness of Breath or Wheeze Stop: 01/27/18 23:09 Last Admin: 11/30/17 00:26 Dose: 0.5 mg Levetiracetam (Keppra) 500 mg PO BID [facility] Stop: 01/28/18 08:59 Last Admin: 11/30/17 10:02 Dose: 500 mg Levothyroxine Sodium (Synthroid) 0.05 mg PO QDAC DEWAYNE Stop: 01/28/18 07:29 Last Admin: 11/30/17 06:51 Dose: 0.05 mg Lorazepam (Ativan) 1 mg PO Q6HR PRN; Protocol PRN Reason: Anxiety Stop: 01/27/18 23:07 Lorazepam (Ativan) 1 mg IV Q4H PRN; Protocol PRN Reason: Seizure Stop: 01/27/18 23:09 Last Admin: 11/29/17 20:46 Dose: 1 mg Magnesium Hydroxide (Milk Of Magnesia) 30 ml PO DAILY PRN PRN Reason: Constipation Stop: 01/27/18 23:07 Megestrol Acetate (Megace) 400 mg PO BID [facility]; Protocol Stop: 01/28/18 08:59 Last Admin: 11/30/17 10:02 Dose: 400 mg Ondansetron HCl (Zofran) 4 mg IV Q8H PRN PRN Reason: Nausea / Vomiting Stop: 01/27/18 23:09 Senna (Senna) 8.6 mg PO HS DEWAYNE Stop: 01/28/18 20:59 Last Admin: 11/29/17 21:02 Dose: 8.6 mg Temazepam (Restoril) 15 mg PO HS PRN; Protocol PRN Reason: Insomnia Stop: 01/27/18 23:07 Last Admin: 11/29/17 21:02 Dose: 15 mg General: weak, alert HEENT: NC/AT, PERRLA Neck: Supple Lungs: CTAB Cardiovascular: RRR, Normal S1, Normal S2, without murmur Abdomen: soft, non-tender, non-distended, positive bowel sound Internal Medicine Assmt/Plan - Assessment Assessment: dehydration ftt dysphagia agitation parkinson's seizure hypothyroidism gerd schizoaffective - Plan Plan: sitter for safety follow up labs in am fall precautions continue current plan of care Nutritional Asmnt/Malnutr-PDOC - Dietary Evaluation Malnutrition Findings (Please click <Entered> for more info): Nutritional Asmnt/Malnutrition Start: 11/29/17 16: 02 Text: Status: Complete Freq: Protocol: Document 11/29/17 16:02 LUISA (Rec: 11/29/17 16:09 [email or web address]) Nutritional Asmnt/Malnutrition Patient General Information Nutritional Screening High Risk Diagnosis dehydration, poor appetite, increased agitation Pertinent Medical Hx/Surgical Hx HTN, PUD/GERD, seizures, thyroid disorder, parkinson, epilepsy, peripheral autonomic neuropathy, schizophrenia, dementia, anxiety disorder, insomnia Subjective Information Pt seen lying in bed at time of visit, not answering RD greeting. Per [employer], pt refused breakfast in the morning. Current Diet Order/ Nutrition Support pureed, ABRB Pertinent Medications D5-0.9%ns, colace, pepcid, synthroid, megace, senna Pertinent Labs 11/28 glucose 115 11/29 POC 90 Nutritional Hx/Data Height 5 ft 2 in Height (Calculated Centimeters) 157.5 Current Weight (lbs) 160 lb Weight (Calculated Kilograms) 72.6 Weight (Calculated Grams) 43658.8 [place] Body Weight 118 Body Mass Index (BMI) 29.2 Weight Status Overweight GI Symptoms GI Symptoms None Last BM not indicated Difficult in: None Skin Integrity/Comment: intact Estimated Nutritional Goals BEE in Kcals: Using Current wt Calories/Kcals/Kg 23-27 Kcals Calculated 1107-4078 Protein: Using Current wt Protein g/k.8-1 Protein Calculated 52-65 Fluid: ml 1495-1755ml (1ml/kcal) Nutritional Problem No current Nutrition Prob Problem N/A Malnutrition Alert Is there a minimum of two criteria No selected? Query Text:Check all the applicable criteria. A minimum of two criteria are recommended for diagnosis of either severe or non-severe malnutrition. Malnutrition Related to Morbid Obesity Malnutrition related to morbid obesity No Intervention/Recommendation Comments 1. Continue with pureed diet as ordered. Encourage oral intake. 2. Monitor PO intake, wt, labs and skin integrity 3. F/U as moderate risk in 3-5 days, 12/02-12/04, PO check 12/01 Expected Outcomes/Goals Expected Outcomes/Goals 1. PO intake to meet at least 75% of nutritional needs. 2. Wt stability, skin to remain intact, labs to approach WNL.
[2017-11-30] MEDS ORDERED: Haloperidol Lactate 5 mg/mL 1mL Vial IM STA (19:47)
--- NOTE | 2017-11-30 20:03 | Psychiatric Evaluation ---
DATE OF SERVICE: 11/30/2017 PHYSICIAN REQUESTING CONSULTATION: Dr. Constantino. REASON FOR CONSULTATION: Agitation and psychosis. HISTORY OF PRESENT ILLNESS: This patient is a 72-year-old male, resident of [facility]. Information obtained by directly interviewing the patient as well as reviewing the admission papers. The patient's daughter who happened to be at the bedside has been spoken to. The patient is reported to have been extremely irritable, angry and has been pulling the IV lines out and psychiatric consultation is called to address the issue. The patient's chart is reviewed. The patient is interviewed. The patient is reported to have been diagnosed with Parkinson disease. He is on Sinemet. The patient is also noted to have the tardive dyskinesia symptoms in the oral area and the patient also having tremors in the upper extremities. The patient has been kept in the mittens to contain the patient's agitated behavior. The patient was given 1 mg of Ativan, but is not of any effect. Daughter has been mentioned that the patient has been having a problem for a long period of time, but lately that the patient is having difficult time and they have to keep him in the restraints [facility] the [facility]. PAST PSYCHIATRIC HISTORY: Details are not known. MEDICAL HISTORY: Significant for Parkinson disease, seizure with hypothyroidism and the patient is being readmitted for dehydration and not eating. MENTAL STATUS EXAMINATION: The patient is a 72-year-old, looking his stated age, superficially cooperative. Eye contact is poor. Mood is noted to be irritable. Affect is constricted. The patient is screaming and yelling and has been getting easily upset. Insight and judgment are noted to be very much impaired. Impulse control is noted to be poor. Coping skills are also noted to be very poor. The patient has been having difficult time to verbalize the concerns. The patient at this time has been not able to contract for safety. DIAGNOSIS AT THE TIME OF EVALUATION: Psychotic disorder, not otherwise specified, rule out schizophrenia, chronic paranoid type. PLAN: To start the patient with the Haldol 2 mg twice a day, Klonopin 0.5 mg twice a day, Depakote 125 mg twice a day and follow the patient with the supportive therapy. Thank you, Dr. Constantino for allowing me to participate in the care of the patient. JOB# [id number]
[2017-12-01] MEDS: D5-0.9%NS 1,000 ML IV SCH ×2 (05:20→16:33)
[2017-12-01] MEDS: Levothyroxine 0.05 Mg Tab PO SCH (06:37)
[2017-12-01 06:39] LABS: % BASOPHILS 0.2 % (0.0-2.0); % EOSINOPHILS 0.8 % (0.0-5.0); % LYMPHOCYTES 34.3 % (20.0-50.0); % MONOCYTES 4.7 % (2.0-10.0); EOSINOPHILE ABSOLUTE 0.1 Th/cmm (0.1-0.4); HEMATOCRIT 45.3 % (41.0-60); HEMOGLOBIN 15.3 gm/dL (12-16); LYMPHOCYTE ABSOLUTE 2.6 Th/cmm (1.5-3.0); MEAN CELL VOLUME 95.8 fl (80-99); MEAN CORPUSCULAR HEMOGLOBIN 32.3 pg (27.0-31.0); MEAN CORPUSCULAR HGB CONC 33.7 pg (28.0-36.0); MEAN PLATELET VOLUME 10.4 fl; MONOCYTE ABSOLUTE 0.4 Th/cmm (0.3-1.0); NEUTROPHILE ABSOLUTE 4.6 Th/cmm (1.8-8.0); PLATELET COUNT 136 Th/cmm (150-400); RED BLOOD COUNT 4.72 Mil/cmm (3.80-5.80); RED CELL DISTRIBUTION WIDTH 12.8 % (11.5-20.0); WHITE BLOOD COUNT 7.7 Th/cmm (4.8-10.8)
[2017-12-01 06:56] LABS: ANION GAP 13.4 (7.0-16.0); BUN - UREA NITROGEN 15 mg/dL (7-25); CALCIUM SERUM 9.4 mg/dL (8.6-10.3); CARBON DIOXIDE 21.5 mEq/L (21.0-31.0); CHLORIDE 107 mEq/L (98-107); CREATININE - SERUM 0.9 mg/dL (0.7-1.3); GLUCOSE 83 mg/dL (70-105); POTASSIUM SERUM 3.9 mEq/L (3.5-5.1); SODIUM SERUM 138 mEq/L (136-145)
[2017-12-01] MEDS: Polyvinyl Alcohol Ophth Soln 15 mL Bottle EACH EYE SCH ×2 (08:53→16:24)
[2017-12-01 12:16] LABS: FOLIC ACID 16.8 ng/mL (>3.0)
--- NOTE | 2017-12-01 12:26 | Progress Notes ---
DATE: 12/01/2017 SUBJECTIVE: Staff was spoken to. The patient is interviewed. Mood is noted to be irritable. Affect is constricted. Continues to be irritable and angry and has been trying to pull the ____. The patient is very impulsive. The patient has been having tardive dyskinesia symptoms and the patient has to be given a dose of Haldol, Benadryl and Ativan yesterday and the patient also has been placed on the Klonopin to calm him down. ASSESSMENT: The patient is still grossly psychotic and impulsive. PLAN: To continue the patient with the current medications and followup. JOB# [id number]
--- NOTE | 2017-12-01 13:57 | Internal Medicine Prog Note ---
Internal Medicine Subjective - Subjective Service Date: 12/01/17 Patient seen and examined:: with staff Patient is:: awake Per staff patient has:: tolerating meds Internal Medicine Objective - Results Result Diagrams: 12/01/17 05:41 12/01/17 05:41 Recent Labs: Laboratory Last Values WBC 7.7 Th/cmm (4.8-10.8) 12/01/17 05:41 RBC 4.72 Mil/cmm (3.80-5.80) 12/01/17 05:41 Hgb 15.3 gm/dL (12-16) 12/01/17 05:41 Hct 45.3 % (41.0-60) 12/01/17 05:41 MCV 95.8 fl (80-99) 12/01/17 05:41 MCH 32.3 pg (27.0-31.0) H 12/01/17 05:41 MCHC Differential 33.7 pg (28.0-36.0) 12/01/17 05:41 RDW 12.8 % (11.5-20.0) 12/01/17 05:41 Plt Count 136 Th/cmm (150-400) L 12/01/17 05:41 MPV 10.4 fl 12/01/17 05:41 Neutrophils % 60.0 % (40.0-80.0) 12/01/17 05:41 Lymphocytes % 34.3 % (20.0-50.0) 12/01/17 05:41 Monocytes % 4.7 % (2.0-10.0) 12/01/17 05:41 Eosinophils % 0.8 % (0.0-5.0) 12/01/17 05:41 Basophils % 0.2 % (0.0-2.0) 12/01/17 05:41 Sodium 138 mEq/L (136-145) 12/01/17 05:41 Potassium 3.9 mEq/L (3.5-5.1) 12/01/17 05:41 Chloride 107 mEq/L (98-107) 12/01/17 05:41 Carbon Dioxide 21.5 mEq/L (21.0-31.0) 12/01/17 05:41 Anion Gap 13.4 (7.0-16.0) 12/01/17 05:41 BUN 15 mg/dL (7-25) 12/01/17 05:41 Creatinine 0.9 mg/dL (0.7-1.3) 12/01/17 05:41 Est GFR ( Amer) TNP 12/01/17 05:41 Est GFR (Non-Af Amer) TNP 12/01/17 05:41 BUN/Creatinine Ratio 16.7 12/01/17 05:41 Glucose 83 mg/dL (70-105) 12/01/17 05:41 POC Glucose 104 MG/DL (70 - 105) 11/29/17 23:46 Calcium 9.4 mg/dL (8.6-10.3) 12/01/17 05:41 Phosphorus 3.5 mg/dL (2.5-5.0) 11/28/17 20:58 Magnesium 2.5 mg/dL (1.9-2.7) 11/28/17 20:58 Total Bilirubin 0.5 mg/dL (0.3-1.0) 11/30/17 05:15 AST 15 U/L (13-39) 11/30/17 05:15 ALT 3 U/L (7-52) L 11/30/17 05:15 Alkaline Phosphatase 69 U/L (34-104) 11/30/17 05:15 Ammonia 29 umol/L (16-53) 11/30/17 05:15 B-Natriuretic Peptide 69.0 pg/mL (5.0-100.0) 11/30/17 05:15 Total Protein 6.5 gm/dL (6.0-8.3) 11/30/17 05:15 Albumin 3.5 gm/dL (4.2-5.5) L 11/30/17 05:15 Globulin 3.0 gm/dL 11/30/17 05:15 Albumin/Globulin Ratio 1.2 (1.0-1.8) 11/30/17 05:15 Vitamin B12 619 pg/mL (232-1245) 11/30/17 05:15 Folic Acid 16.8 ng/mL (>3.0) 11/30/17 05:15 TSH 4.67 uIU/ml (0.34-5.60) 11/28/17 20:58 Urine Source CLEAN C 11/28/17 23:00 Urine Color YELLOW 11/28/17 23:00 Urine Clarity CLEAR (CLEAR) 11/28/17 23:00 Urine pH 7.0 (4.6 - 8.0) 11/28/17 23:00 Ur Specific [place] 1.010 (1.005-1.030) 11/28/17 23:00 Urine Protein NEGATIVE mg/dL (NEGATIVE) 11/28/17 23:00 Urine Glucose (UA) NEGATIVE mg/dL (NEGATIVE) 11/28/17 23:00 Urine Ketones NEGATIVE mg/dL (NEGATIVE) 11/28/17 23:00 Urine Blood NEGATIVE (NEGATIVE) 11/28/17 23:00 Urine Nitrate NEGATIVE (NEGATIVE) 11/28/17 23:00 Urine Bilirubin NEGATIVE (NEGATIVE) 11/28/17 23:00 Urine Urobilinogen 0.2 E.U./dL (0.2 - 1.0) 11/28/17 23:00 Ur Leukocyte Esterase NEGATIVE (NEGATIVE) 11/28/17 23:00 Urine Opiates Screen NEGATIVE (NEGATIVE) 11/28/17 23:00 Urine Methadone Screen NEGATIVE (NEGATIVE) 11/28/17 23:00 Ur Barbiturates Screen NEGATIVE (NEGATIVE) 11/28/17 23:00 Ur Tricyclics Screen NEGATIVE (NEGATIVE) 11/28/17 23:00 Ur Phencyclidine Scrn NEGATIVE (NEGATIVE) 11/28/17 23:00 Amphetamines Screen NEGATIVE (NEGATIVE) 11/28/17 23:00 U Methamphetamines Scrn NEGATIVE (NEGATIVE) 11/28/17 23:00 U Benzodiazepines Scrn POSITIVE (NEGATIVE) H 11/28/17 23:00 U Cocaine Metab Screen NEGATIVE (NEGATIVE) 11/28/17 23:00 U Cannabinoids Screen NEGATIVE (NEGATIVE) 11/28/17 23:00 - Physical Exam Vitals and I&O: Vital Signs Temp 97.4 F 12/01/17 12:06 Pulse 98 12/01/17 12:06 Resp 19 12/01/17 12:06 BP 141/89 12/01/17 12:06 Pulse Ox 98 12/01/17 12:06 Intake & Output 11/30/17 12/01/17 12/01/17 18:59 06:59 18:59 Intake Total 1950 1100 Balance 1950 1100 Weight (lbs) 159 lb 3 oz 159 lb 159 lb Intake: Intake, IV Amount 1000 1000 D5-0.9%Ns 1,000 ml @ 80 1000 1000 mls/hr IV .[id number] [facility] Rx #:[id number] Oral 950 100 Other: # Voids 4 # Bowel Movements 0 Weight Source Bedscale Bedscale Bedscale Active Medications: Current Medications Acetaminophen (Tylenol) 650 mg PO Q4H PRN PRN Reason: Pain Or Fever above 101 Stop: 01/27/18 23:09 Last Admin: 11/30/17 02:32 Dose: 650 mg Al Hydrox/Mg Hydrox/Simethicone (Maalox) 30 ml PO Q6H PRN PRN Reason: Dyspepsia Stop: 01/27/18 23:09 Albuterol Sulfate (Albuterol 2.5mg/3ml Neb Ud) 2.5 mg HHN Q2HRT PRN PRN Reason: Shortness of Breath or Wheeze Stop: 01/27/18 23:09 Last Admin: 11/30/17 00:26 Dose: 2.5 mg Artificial Tears (Artificial Tears Ophth Soln) 1 drop EACH EYE BID [facility] Stop: 01/28/18 08:59 Last Admin: 12/01/17 08:53 Dose: 1 drop Carbidopa/Levodopa (Sinemet 25mg-100 Mg) 1 tab PO BID [facility] Stop: 01/28/18 16:59 Last Admin: 12/01/17 08:54 Dose: 1 tab Clonazepam (Klonopin) 0.5 mg PO BID [facility]; Protocol Stop: 01/30/18 08:59 Last Admin: 12/01/17 08:54 Dose: 0.5 mg Docusate Sodium (Colace) 100 mg PO BID [facility] Stop: 01/28/18 08:59 Last Admin: 12/01/17 08:54 Dose: 100 mg Famotidine (Pepcid) 20 mg PO DAILY [facility] Stop: 01/28/18 08:59 Last Admin: 12/01/17 08:54 Dose: 20 mg Guaifenesin (Robitussin) 200 mg PO Q4HR PRN PRN Reason: Cough or Congestion Stop: 01/27/18 23:09 Last Admin: 11/30/17 02:32 Dose: 200 mg Haloperidol (Haldol) 2 mg PO BID [facility]; Protocol Stop: 01/29/18 20:59 Last Admin: 12/01/17 08:54 Dose: 2 mg Dextrose/Sodium Chloride (D5-0.9%Ns) 1,000 mls @ 80 mls/hr IV .[id number] [facility] Stop: 01/27/18 23:14 Last Admin: 12/01/17 05:20 Dose: 80 mls/hr Ipratropium [place] (Atrovent Neb 0.5mg/2.5ml) 0.5 mg HHN Q2HRT PRN PRN Reason: Shortness of Breath or Wheeze Stop: 01/27/18 23:09 Last Admin: 11/30/17 00:26 Dose: 0.5 mg Levetiracetam (Keppra) 500 mg PO BID [facility] Stop: 01/28/18 08:59 Last Admin: 12/01/17 08:54 Dose: 500 mg Levothyroxine Sodium (Synthroid) 0.05 mg PO QDAC [facility] Stop: 01/28/18 07:29 Last Admin: 12/01/17 06:37 Dose: 0.05 mg Lorazepam (Ativan) 1 mg PO Q6HR PRN; Protocol PRN Reason: Anxiety Stop: 01/27/18 23:07 Last Admin: 12/01/17 05:52 Dose: 1 mg Lorazepam (Ativan) 1 mg IV Q4H PRN; Protocol PRN Reason: Seizure Stop: 01/27/18 23:09 Last Admin: 11/29/17 20:46 Dose: 1 mg Magnesium Hydroxide (Milk Of Magnesia) 30 ml PO DAILY PRN PRN Reason: Constipation Stop: 01/27/18 23:07 Megestrol Acetate (Megace) 400 mg PO BID [facility]; Protocol Stop: 01/28/18 08:59 Last Admin: 12/01/17 08:54 Dose: 400 mg Ondansetron HCl (Zofran) 4 mg IV Q8H PRN PRN Reason: Nausea / Vomiting Stop: 01/27/18 23:09 Senna (Senna) 8.6 mg PO HS [facility] Stop: 01/28/18 20:59 Last Admin: 11/30/17 22:58 Dose: Not Given Temazepam (Restoril) 15 mg PO HS PRN; Protocol PRN Reason: Insomnia Stop: 01/27/18 23:07 Last Admin: 11/29/17 21:02 Dose: 15 mg Valproate Sodium (Depakene) 125 mg PO BID [facility]; Protocol Stop: 01/30/18 08:59 Last Admin: 12/01/17 08:53 Dose: 125 mg General: weak, alert HEENT: NC/AT, PERRLA Neck: Supple Lungs: CTAB Cardiovascular: RRR, Normal S1, Normal S2, without murmur Abdomen: soft, non-tender, non-distended, positive bowel sound Internal Medicine Assmt/Plan - Assessment Assessment: dehydration ftt dysphagia agitation parkinson's seizure hypothyroidism gerd schizoaffective - Plan Plan: dc planning in am fall precautions continue current plan of care Nutritional Asmnt/Malnutr-PDOC - Dietary Evaluation Malnutrition Findings (Please click <Entered> for more info): Nutritional Asmnt/Malnutrition Start: 11/29/17 16: 02 Text: Status: Complete Freq: Protocol: Document 11/29/17 16:02 LCHENG (Rec: 11/29/17 16:09 LCHENG [email or web address]) Nutritional Asmnt/Malnutrition Patient General Information Nutritional Screening High Risk Diagnosis dehydration, poor appetite, increased agitation Pertinent Medical Hx/Surgical Hx HTN, PUD/GERD, seizures, thyroid disorder, parkinson, epilepsy, peripheral autonomic neuropathy, schizophrenia, dementia, anxiety disorder, insomnia Subjective Information Pt seen lying in bed at time of visit, not answering RD greeting. Per [employer] TE[employer]ER, pt refused breakfast in the morning. Current Diet Order/ Nutrition Support pureed, BARB Pertinent Medications D5-0.9%ns, colace, pepcid, synthroid, megace, senna Pertinent Labs 11/28 glucose 115 11/29 POC 90 Nutritional Hx/Data Height 5 ft 2 in Height (Calculated Centimeters) 157.5 Current Weight (lbs) 160 lb Weight (Calculated Kilograms) 72.6 Weight (Calculated Grams) 40310.8 [place] Body Weight 118 Body Mass Index (BMI) 29.2 Weight Status Overweight GI Symptoms GI Symptoms None Last BM not indicated Difficult in: None Skin Integrity/Comment: intact Estimated Nutritional Goals BEE in Kcals: Using Current wt Calories/Kcals/Kg 23-27 Kcals Calculated 8421-3542 Protein: Using Current wt Protein g/k.8-1 Protein Calculated 52-65 Fluid: ml 1495-1755ml (1ml/kcal) Nutritional Problem No current Nutrition Prob Problem N/A Malnutrition Alert Is there a minimum of two criteria No selected? Query Text:Check all the applicable criteria. A minimum of two criteria are recommended for diagnosis of either severe or non-severe malnutrition. Malnutrition Related to Morbid Obesity Malnutrition related to morbid obesity No Intervention/Recommendation Comments 1. Continue with pureed diet as ordered. Encourage oral intake. 2. Monitor PO intake, wt, labs and skin integrity 3. F/U as moderate risk in 3-5 days, 12/02-12/04, PO check 12/01 Expected Outcomes/Goals Expected Outcomes/Goals 1. PO intake to meet at least 75% of nutritional needs. 2. Wt stability, skin to remain intact, labs to approach WNL.
[2017-12-02] MEDS: D5-0.9%NS 1,000 ML IV SCH (04:58)
[2017-12-02 05:37] LABS: % EOSINOPHILS 1.3 % (0.0-5.0); % LYMPHOCYTES 35.9 % (20.0-50.0); % MONOCYTES 5.5 % (2.0-10.0); % NEUTROPHILS 57.3 % (40.0-80.0); EOSINOPHILE ABSOLUTE 0.1 Th/cmm (0.1-0.4); HEMATOCRIT 41.3 % (41.0-60); HEMOGLOBIN 13.8 gm/dL (12-16); LYMPHOCYTE ABSOLUTE 1.9 Th/cmm (1.5-3.0); MEAN CELL VOLUME 96.3 fl (80-99); MEAN CORPUSCULAR HEMOGLOBIN 32.2 pg (27.0-31.0); MEAN CORPUSCULAR HGB CONC 33.4 pg (28.0-36.0); MEAN PLATELET VOLUME 8.9 fl; MONOCYTE ABSOLUTE 0.3 Th/cmm (0.3-1.0); NEUTROPHILE ABSOLUTE 2.9 Th/cmm (1.8-8.0); RED BLOOD COUNT 4.29 Mil/cmm (3.80-5.80); RED CELL DISTRIBUTION WIDTH 12.6 % (11.5-20.0); WHITE BLOOD COUNT 5.2 Th/cmm (4.8-10.8)
[2017-12-02 05:46] LABS: PLATELET COUNT 197 Th/cmm (150-400)
[2017-12-02 05:50] LABS: ANION GAP 11.1 (7.0-16.0); BUN - UREA NITROGEN 13 mg/dL (7-25); CALCIUM SERUM 8.7 mg/dL (8.6-10.3); CARBON DIOXIDE 20.4 mEq/L (21.0-31.0); CHLORIDE 110 mEq/L (98-107); CREATININE - SERUM 0.7 mg/dL (0.7-1.3); GLUCOSE 110 mg/dL (70-105); POTASSIUM SERUM 3.5 mEq/L (3.5-5.1); SODIUM SERUM 138 mEq/L (136-145)
[2017-12-02] MEDS: Levothyroxine 0.05 Mg Tab PO SCH (06:44)
[2017-12-02] MEDS: Polyvinyl Alcohol Ophth Soln 15 mL Bottle EACH EYE SCH ×2 (08:35→16:09)
--- NOTE | 2017-12-02 11:53 | Internal Medicine Prog Note ---
Internal Medicine Subjective - Subjective Service Date: 12/02/17 Patient seen and examined:: with staff Patient is:: awake Per staff patient has:: tolerating meds Internal Medicine Objective - Results Result Diagrams: 12/02/17 05:25 12/02/17 05:25 Recent Labs: Laboratory Last Values WBC 5.2 Th/cmm (4.8-10.8) 12/02/17 05:25 RBC 4.29 Mil/cmm (3.80-5.80) 12/02/17 05:25 Hgb 13.8 gm/dL (12-16) 12/02/17 05:25 Hct 41.3 % (41.0-60) 12/02/17 05:25 MCV 96.3 fl (80-99) 12/02/17 05:25 MCH 32.2 pg (27.0-31.0) H 12/02/17 05:25 MCHC Differential 33.4 pg (28.0-36.0) 12/02/17 05:25 RDW 12.6 % (11.5-20.0) 12/02/17 05:25 Plt Count 197 Th/cmm (150-400) D 12/02/17 05:25 MPV 8.9 fl 12/02/17 05:25 Neutrophils % 57.3 % (40.0-80.0) 12/02/17 05:25 Lymphocytes % 35.9 % (20.0-50.0) 12/02/17 05:25 Monocytes % 5.5 % (2.0-10.0) 12/02/17 05:25 Eosinophils % 1.3 % (0.0-5.0) 12/02/17 05:25 Basophils % 0.0 % (0.0-2.0) 12/02/17 05:25 Sodium 138 mEq/L (136-145) 12/02/17 05:25 Potassium 3.5 mEq/L (3.5-5.1) 12/02/17 05:25 Chloride 110 mEq/L (98-107) H 12/02/17 05:25 Carbon Dioxide 20.4 mEq/L (21.0-31.0) L 12/02/17 05:25 Anion Gap 11.1 (7.0-16.0) 12/02/17 05:25 BUN 13 mg/dL (7-25) 12/02/17 05:25 Creatinine 0.7 mg/dL (0.7-1.3) 12/02/17 05:25 Est GFR ( Amer) TNP 12/02/17 05:25 Est GFR (Non-Af Amer) TNP 12/02/17 05:25 BUN/Creatinine Ratio 18.6 12/02/17 05:25 Glucose 110 mg/dL (70-105) H 12/02/17 05:25 POC Glucose 104 MG/DL (70 - 105) 11/29/17 23:46 Calcium 8.7 mg/dL (8.6-10.3) 12/02/17 05:25 Phosphorus 3.5 mg/dL (2.5-5.0) 11/28/17 20:58 Magnesium 2.5 mg/dL (1.9-2.7) 11/28/17 20:58 Total Bilirubin 0.5 mg/dL (0.3-1.0) 11/30/17 05:15 AST 15 U/L (13-39) 11/30/17 05:15 ALT 3 U/L (7-52) L 11/30/17 05:15 Alkaline Phosphatase 69 U/L (34-104) 11/30/17 05:15 Ammonia 29 umol/L (16-53) 11/30/17 05:15 B-Natriuretic Peptide 69.0 pg/mL (5.0-100.0) 11/30/17 05:15 Total Protein 6.5 gm/dL (6.0-8.3) 11/30/17 05:15 Albumin 3.5 gm/dL (4.2-5.5) L 11/30/17 05:15 Globulin 3.0 gm/dL 11/30/17 05:15 Albumin/Globulin Ratio 1.2 (1.0-1.8) 11/30/17 05:15 Vitamin B12 619 pg/mL (232-1245) 11/30/17 05:15 Folic Acid 16.8 ng/mL (>3.0) 11/30/17 05:15 TSH 4.67 uIU/ml (0.34-5.60) 11/28/17 20:58 Urine Source CLEAN C 11/28/17 23:00 Urine Color YELLOW 11/28/17 23:00 Urine Clarity CLEAR (CLEAR) 11/28/17 23:00 Urine pH 7.0 (4.6 - 8.0) 11/28/17 23:00 Ur Specific [place] 1.010 (1.005-1.030) 11/28/17 23:00 Urine Protein NEGATIVE mg/dL (NEGATIVE) 11/28/17 23:00 Urine Glucose (UA) NEGATIVE mg/dL (NEGATIVE) 11/28/17 23:00 Urine Ketones NEGATIVE mg/dL (NEGATIVE) 11/28/17 23:00 Urine Blood NEGATIVE (NEGATIVE) 11/28/17 23:00 Urine Nitrate NEGATIVE (NEGATIVE) 11/28/17 23:00 Urine Bilirubin NEGATIVE (NEGATIVE) 11/28/17 23:00 Urine Urobilinogen 0.2 E.U./dL (0.2 - 1.0) 11/28/17 23:00 Ur Leukocyte Esterase NEGATIVE (NEGATIVE) 11/28/17 23:00 Urine Opiates Screen NEGATIVE (NEGATIVE) 11/28/17 23:00 Urine Methadone Screen NEGATIVE (NEGATIVE) 11/28/17 23:00 Ur Barbiturates Screen NEGATIVE (NEGATIVE) 11/28/17 23:00 Ur Tricyclics Screen NEGATIVE (NEGATIVE) 11/28/17 23:00 Ur Phencyclidine Scrn NEGATIVE (NEGATIVE) 11/28/17 23:00 Amphetamines Screen NEGATIVE (NEGATIVE) 11/28/17 23:00 U Methamphetamines Scrn NEGATIVE (NEGATIVE) 11/28/17 23:00 U Benzodiazepines Scrn POSITIVE (NEGATIVE) H 11/28/17 23:00 U Cocaine Metab Screen NEGATIVE (NEGATIVE) 11/28/17 23:00 U Cannabinoids Screen NEGATIVE (NEGATIVE) 11/28/17 23:00 - Physical Exam Vitals and I&O: Vital Signs Temp 98 F 12/02/17 10:30 Pulse 75 12/02/17 10:30 Resp 18 12/02/17 10:30 BP 128/78 12/02/17 10:30 Pulse Ox 99 12/02/17 08:16 Intake & Output 12/01/17 12/02/17 12/02/17 18:59 06:59 18:59 Intake Total 822.685 1567.333 Balance 541.543 8328.333 Weight (lbs) 159 lb 151 lb 6.4 oz Intake: Intake, IV Amount 897.333 993.333 D5-0.9%Ns 1,000 ml @ 80 897.333 993.333 mls/hr IV .[id number] [facility] Rx #:[id number] Oral 475 Other: # Voids 4 Weight Source Bedscale Bedscale Active Medications: Current Medications Acetaminophen (Tylenol) 650 mg PO Q4H PRN PRN Reason: Pain Or Fever above 101 Stop: 01/27/18 23:09 Last Admin: 11/30/17 02:32 Dose: 650 mg Al Hydrox/Mg Hydrox/Simethicone (Maalox) 30 ml PO Q6H PRN PRN Reason: Dyspepsia Stop: 01/27/18 23:09 Albuterol Sulfate (Albuterol 2.5mg/3ml Neb Ud) 2.5 mg HHN Q2HRT PRN PRN Reason: Shortness of Breath or Wheeze Stop: 01/27/18 23:09 Last Admin: 11/30/17 00:26 Dose: 2.5 mg Artificial Tears (Artificial Tears Ophth Soln) 1 drop EACH EYE BID [facility] Stop: 01/28/18 08:59 Last Admin: 12/02/17 08:35 Dose: 1 drop Carbidopa/Levodopa (Sinemet 25mg-100 Mg) 1 tab PO BID [facility] Stop: 01/28/18 16:59 Last Admin: 12/02/17 08:31 Dose: 1 tab Clonazepam (Klonopin) 0.5 mg PO BID [facility]; Protocol Stop: 01/30/18 08:59 Last Admin: 12/02/17 08:36 Dose: 0.5 mg Docusate Sodium (Colace) 100 mg PO BID [facility] Stop: 01/28/18 08:59 Last Admin: 12/02/17 08:33 Dose: 100 mg Famotidine (Pepcid) 20 mg PO DAILY [facility] Stop: 01/28/18 08:59 Last Admin: 12/02/17 08:33 Dose: 20 mg Guaifenesin (Robitussin) 200 mg PO Q4HR PRN PRN Reason: Cough or Congestion Stop: 01/27/18 23:09 Last Admin: 11/30/17 02:32 Dose: 200 mg Haloperidol (Haldol) 2 mg PO BID [facility]; Protocol Stop: 01/29/18 20:59 Last Admin: 12/02/17 08:31 Dose: 2 mg Dextrose/Sodium Chloride (D5-0.9%Ns) 1,000 mls @ 80 mls/hr IV .[id number] [facility] Stop: 01/27/18 23:14 Last Admin: 12/02/17 04:58 Dose: 80 mls/hr Ipratropium [place] (Atrovent Neb 0.5mg/2.5ml) 0.5 mg HHN Q2HRT PRN PRN Reason: Shortness of Breath or Wheeze Stop: 01/27/18 23:09 Last Admin: 11/30/17 00:26 Dose: 0.5 mg Levetiracetam (Keppra) 500 mg PO BID [facility] Stop: 01/28/18 08:59 Last Admin: 12/02/17 08:31 Dose: 500 mg Levothyroxine Sodium (Synthroid) 0.05 mg PO QDAC [facility] Stop: 01/28/18 07:29 Last Admin: 12/02/17 06:44 Dose: 0.05 mg Lorazepam (Ativan) 1 mg PO Q6HR PRN; Protocol PRN Reason: Anxiety Stop: 01/27/18 23:07 Last Admin: 12/01/17 21:03 Dose: 1 mg Lorazepam (Ativan) 1 mg IV Q4H PRN; Protocol PRN Reason: Seizure Stop: 01/27/18 23:09 Last Admin: 11/29/17 20:46 Dose: 1 mg Magnesium Hydroxide (Milk Of Magnesia) 30 ml PO DAILY PRN PRN Reason: Constipation Stop: 01/27/18 23:07 Megestrol Acetate (Megace) 400 mg PO BID [facility]; Protocol Stop: 01/28/18 08:59 Last Admin: 12/02/17 08:33 Dose: 400 mg Ondansetron HCl (Zofran) 4 mg IV Q8H PRN PRN Reason: Nausea / Vomiting Stop: 01/27/18 23:09 Senna (Senna) 8.6 mg PO HS [facility] Stop: 01/28/18 20:59 Last Admin: 12/01/17 21:03 Dose: 8.6 mg Temazepam (Restoril) 15 mg PO HS PRN; Protocol PRN Reason: Insomnia Stop: 01/27/18 23:07 Last Admin: 11/29/17 21:02 Dose: 15 mg Valproate Sodium (Depakene) 125 mg PO BID [facility]; Protocol Stop: 01/30/18 08:59 Last Admin: 12/02/17 08:33 Dose: 125 mg General: weak, alert HEENT: NC/AT, PERRLA Neck: Supple Lungs: CTAB Cardiovascular: RRR, Normal S1, Normal S2, without murmur Abdomen: soft, non-tender, non-distended, positive bowel sound Internal Medicine Assmt/Plan - Assessment Assessment: dehydration ftt dysphagia agitation parkinson's seizure hypothyroidism gerd schizoaffective - Plan Plan: fall precautions continue current plan of care Nutritional Asmnt/Malnutr-PDOC - Dietary Evaluation Malnutrition Findings (Please click <Entered> for more info): Nutritional Asmnt/Malnutrition Start: 11/29/17 16: 02 Text: Status: Complete Freq: Protocol: Document 11/29/17 16:02 LCHENG (Rec: 11/29/17 16:09 [email or web address]) Nutritional Asmnt/Malnutrition Patient General Information Nutritional Screening High Risk Diagnosis dehydration, poor appetite, increased agitation Pertinent Medical Hx/Surgical Hx HTN, PUD/GERD, seizures, thyroid disorder, parkinson, epilepsy, peripheral autonomic neuropathy, schizophrenia, dementia, anxiety disorder, insomnia Subjective Information Pt seen lying in bed at time of visit, not answering RD greeting. 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 Current Diet Order/ Nutrition Support pureed, BARB Pertinent Medications D5-0.9%ns, colace, pepcid, synthroid, megace, senna Pertinent Labs 11/28 glucose 115 11/29 POC 90 Nutritional Hx/Data Height 5 ft 2 in Height (Calculated Centimeters) 157.5 Current Weight (lbs) 160 lb Weight (Calculated Kilograms) 72.6 Weight (Calculated Grams) 20527.8 [place] Body Weight 118 Body Mass Index (BMI) 29.2 Weight Status Overweight GI Symptoms GI Symptoms None Last BM not indicated Difficult in: None Skin Integrity/Comment: intact Estimated Nutritional Goals BEE in Kcals: Using Current wt Calories/Kcals/Kg 23-27 Kcals Calculated 3255-9555 Protein: Using Current wt Protein g/k.8-1 Protein Calculated 52-65 Fluid: ml 1495-1755ml (1ml/kcal) Nutritional Problem No current Nutrition Prob Problem N/A Malnutrition Alert Is there a minimum of two criteria No selected? Query Text:Check all the applicable criteria. A minimum of two criteria are recommended for diagnosis of either severe or non-severe malnutrition. Malnutrition Related to Morbid Obesity Malnutrition related to morbid obesity No Intervention/Recommendation Comments 1. Continue with pureed diet as ordered. Encourage oral intake. 2. Monitor PO intake, wt, labs and skin integrity 3. F/U as moderate risk in 3-5 days, 12/02-12/04, PO check 12/01 Expected Outcomes/Goals Expected Outcomes/Goals 1. PO intake to meet at least 75% of nutritional needs. 2. Wt stability, skin to remain intact, labs to approach WNL.
--- NOTE | 2017-12-10 05:18 | Discharge Summary ---
DATE OF DISCHARGE: 12/02/2017 DICTATED FOR: Dr. Jonny Constantino DISCHARGE DIAGNOSES: Acute dehydration which has been treated, failure to thrive, dysphagia, agitation, Parkinson, seizure, hypothyroidism, gastroesophageal reflux disease and schizoaffective disorder. HISTORY OF PRESENT ILLNESS: This is a 72-year-old male who is a resident of [facility], admitted to the med/surg unit due to refusing to eat as well as taking his medications. The patient was admitted for dehydration. PHYSICAL EXAMINATION: GENERAL: Elderly male, appears chronically ill, no apparent distress. VITAL SIGNS: Stable. HEENT: Head normocephalic, atraumatic. NECK: Supple. No mass. LUNGS: Clear bilaterally. HEART: Regular rhythm. ABDOMEN: Soft, nontender. HOSPITAL COURSE: During hospital stay, the patient was admitted to the med/surg unit. The patient was kept on aggressive IV fluids for hydration. Due to the patient's agitation, the patient had a 1:1 sitter as well. The patient was also being seen by psychiatrist. The patient's BUN and creatinine is within normal limits and there were no signs and symptoms of any dehydration during the hospital stay. For this reason, the patient was stable for discharge. CONDITION UPON DISCHARGE: Fair. DISPOSITION: [facility]. JOB# [id number]
== END 2017-12-02 18:00 | DRG 422 ==
LOC: ER 20:37 → MSI 23:12
PROVIDERS: ADMIT Internal Medicine; ATTEND Internal Medicine
DX: E86.0 Dehydration (principal); G93.40 Encephalopathy, unspecified; G20 Parkinson's disease; F25.9 Schizoaffective disorder, unspecified; F02.80 Dementia in other diseases classified elsewhere, unspecified severity, without behavioral disturbance, psychotic disturbance, mood disturbance, and anxiety; R62.7 Adult failure to thrive; R13.10 Dysphagia, unspecified; E03.9 Hypothyroidism, unspecified; I10 Essential (primary) hypertension; K21.9 Gastro-esophageal reflux disease without esophagitis; G40.909 Epilepsy, unspecified, not intractable, without status epilepticus; G90.9 Disorder of the autonomic nervous system, unspecified; F41.9 Anxiety disorder, unspecified; G47.00 Insomnia, unspecified; F29 Unspecified psychosis not due to a substance or known physiological condition
CPT/HCPCS: 36415-UA; 80048-TC; 80053-TC; 80307; 81003-TC; 82140-TC; 82607-90; 82746-90; 82948-90; 83735-TC; 83880-TC; 84100-TC; 84443-TC; 85025-TC; 90779; 94760; 96374; 96375; J1200; J1630; J2060; J7613; Z7610

== ENCOUNTER 2018-05-29 18:24 | Inpatient (IN) | payer MEDICAID ==
[2018-05-29 19:06] LABS: % BASOPHILS 0.6 % (0.0-2.0); % EOSINOPHILS 1.3 % (0.0-5.0); % LYMPHOCYTES 35.2 % (20.0-50.0); % MONOCYTES 7.9 % (2.0-10.0); EOSINOPHILE ABSOLUTE 0.1 Th/cmm (0.1-0.4); HEMATOCRIT 42.2 % (41.0-60); HEMOGLOBIN 14.3 gm/dL (12-16); LYMPHOCYTE ABSOLUTE 1.6 Th/cmm (1.5-3.0); MEAN CELL VOLUME 95.4 fl (80-99); MEAN CORPUSCULAR HEMOGLOBIN 32.4 pg (27.0-31.0); MEAN CORPUSCULAR HGB CONC 33.9 pg (28.0-36.0); MEAN PLATELET VOLUME 8.3 fl; MONOCYTE ABSOLUTE 0.4 Th/cmm (0.3-1.0); NEUTROPHILE ABSOLUTE 2.4 Th/cmm (1.8-8.0); PLATELET COUNT 201 Th/cmm (150-400); RED BLOOD COUNT 4.42 Mil/cmm (3.80-5.80); RED CELL DISTRIBUTION WIDTH 12.6 % (11.5-20.0); WHITE BLOOD COUNT 4.5 Th/cmm (4.8-10.8)
--- NOTE | 2018-05-29 19:12 | ED Physician Chart ---
ED Chief Complaint/HPI - Patient Information Date Seen:: 05/29/18 Time Seen:: 19:00 Chief Complaint:: failure to thrive History of Present Illness:: Patient has been reportedly refusing to eat at his extended care facility. Patient has dementia and appears to be nonverbal so no further history is available. Allergies:: Allergies Allergy/AdvReac Type Severity Reaction Status Date / Time Penicillins Allergy Verified 11/28/17 20:53 Vitals:: Vital Signs - 8 hr 05/29/18 18:35 Temp 96.4 F HR 62 RR 18 BP 114/60 O2 Sat % 98 Historian:: Patient Review:: Transfer documents Reviewed ED Review of Systems - Review of Systems General/Constitutional: No fever, No chills Skin: No skin lesions Head: No headache Eyes: No loss of vision ENT: No earache Neck: No neck pain Cardio Vascular: No chest pain Pulmonary: No SOB GI: No nausea, No vomiting, Other (anorexia) G/U: Dysuria Musculoskeletal: No bone or joint pain Endocrine: No polyuria Psychiatric: Prior psych history Hematopoietic: No bruising Allergic/Immuno: No urticaria Neurological: No syncope ED Past Medical History - Past Medical History Past Medical History: PUD/GERD, Seizures, Thyroid disorder Family History: Other (unavailable) Social History: Care Facility Surgical History: other (unavailable) Psychiatricy History: Schizophrenia, Dementia Family Medical History - Family Member Mother History Unknown: Yes Ethnicity: ED Physical Exam - Physical Examination General/Constitutional: Awake Other Gen/Cons comments:: Mildly chronically ill-appearing; nonverbal Head: Atraumatic Eyes: Lids, conjuctiva normal, PERRL Skin: Nl inspection, No rash ENMT: External ears, nose nl Other ENMT comments:: 4/4 poor dental hygiene Neck: No nuchal rigidity Respiratory: Clear to Auscultation Cardio Vascular: RRR GI: No tenderness/rebounding/guarding, No organomegaly, Nondistended Extremities: Normal digits & nails Neuro/Psych: No focal deficits Other Neuro/Psych comments:: Tremors of both hands and mandible ED Labs/Radiology/EKG Results - Lab Results Results: Laboratory Results WBC 4.5 Th/cmm (4.8-10.8) L 05/29/18 18:55 RBC 4.42 Mil/cmm (3.80-5.80) 05/29/18 18:55 Hgb 14.3 gm/dL (12-16) 05/29/18 18:55 Hct 42.2 % (41.0-60) 05/29/18 18:55 MCV 95.4 fl (80-99) 05/29/18 18:55 MCH 32.4 pg (27.0-31.0) H 05/29/18 18:55 MCHC Differential 33.9 pg (28.0-36.0) 05/29/18 18:55 RDW 12.6 % (11.5-20.0) 05/29/18 18:55 Plt Count 201 Th/cmm (150-400) 05/29/18 18:55 MPV 8.3 fl 05/29/18 18:55 Neutrophils % 55.0 % (40.0-80.0) 05/29/18 18:55 Lymphocytes % 35.2 % (20.0-50.0) 05/29/18 18:55 Monocytes % 7.9 % (2.0-10.0) 05/29/18 18:55 Eosinophils % 1.3 % (0.0-5.0) 05/29/18 18:55 Basophils % 0.6 % (0.0-2.0) 05/29/18 18:55 PT 9.4 SECONDS (9.5-11.5) L 05/29/18 18:55 INR 0.90 (0.5-1.4) 05/29/18 18:55 PTT (Actin FS) 24.2 SECONDS (26.0-38.0) L 05/29/18 18:55 Sodium 140 mEq/L (136-145) 05/29/18 18:55 Potassium 4.1 mEq/L (3.5-5.1) 05/29/18 18:55 Chloride 103 mEq/L (98-107) 05/29/18 18:55 Carbon Dioxide 28.4 mEq/L (21.0-31.0) 05/29/18 18:55 Anion Gap 12.7 (7.0-16.0) 05/29/18 18:55 BUN 15 mg/dL (7-25) 05/29/18 18:55 Creatinine 0.9 mg/dL (0.7-1.3) 05/29/18 18:55 Est GFR ( Amer) TNP 05/29/18 18:55 Est GFR (Non-Af Amer) TNP 05/29/18 18:55 BUN/Creatinine Ratio 16.7 05/29/18 18:55 Glucose 110 mg/dL (70-105) H 05/29/18 18:55 Calcium 8.9 mg/dL (8.6-10.3) 05/29/18 18:55 Total Bilirubin 0.4 mg/dL (0.3-1.0) 05/29/18 18:55 AST 16 U/L (13-39) 05/29/18 18:55 ALT 6 U/L (7-52) L 05/29/18 18:55 Alkaline Phosphatase 73 U/L (34-104) 05/29/18 18:55 Troponin I 0.01 ng/mL (0.01-0.05) 05/29/18 18:55 Total Protein 7.0 gm/dL (6.0-8.3) 05/29/18 18:55 Albumin 4.1 gm/dL (4.2-5.5) L 05/29/18 18:55 Globulin 2.9 gm/dL 05/29/18 18:55 Albumin/Globulin Ratio 1.4 (1.0-1.8) 05/29/18 18:55 - Radiology Results Results: Prominent calcified aortic arch; no infiltrate - EKG Interpretations Rate & Rhythm: normal sinus rhythm with a rate of 66 [place]: normal axis ED Septic Shock - . Is Septic Shock (SBP<90, OR Lactate>4 mmol\L) present?: No - <6hrs of presentation: Vital Signs: Vital Signs - 8 hr 05/29/18 18:35 Temp 96.4 F HR 62 RR 18 BP 114/60 O2 Sat % 98 ED Reassessment (Disposition) - Reassessment Reassessment Condition:: Unchanged - Diagnosis Diagnosis:: Altered mental status; dementia; Parkinson's disease - Patient Disposition Admitted to:: Med/Surg Spoke to:: Jonny Constantino Admitting Medical Physician:: Jonny Constantino Condition at Disposition:: Stable, Unchanged
[2018-05-29 19:24] LABS: INR 0.9 (0.5-1.4); PROTHROMBIN TIME (TEST) 9.4 SECONDS (9.5-11.5)
[2018-05-29 19:26] LABS: ALB/GLOB RATIO 1.4 (1.0-1.8); ALBUMIN 4.1 gm/dL (4.2-5.5); ALKALINE PHOSPHATASE 73 U/L (34-104); ANION GAP 12.7 (7.0-16.0); BILIRUBIN,TOTAL 0.4 mg/dL (0.3-1.0); BUN - UREA NITROGEN 15 mg/dL (7-25); CALCIUM SERUM 8.9 mg/dL (8.6-10.3); CARBON DIOXIDE 28.4 mEq/L (21.0-31.0); CHLORIDE 103 mEq/L (98-107); CREATININE - SERUM 0.9 mg/dL (0.7-1.3); GLUCOSE 110 mg/dL (70-105); POTASSIUM SERUM 4.1 mEq/L (3.5-5.1); SGOT 16 U/L (13-39); SGPT/ALT 6 U/L (7-52); SODIUM SERUM 140 mEq/L (136-145)
[2018-05-29] MEDS ORDERED: Magnesium Hydroxide (MOM) 30 mL UDC PO PRN (20:34)
[2018-05-29] MEDS ORDERED: Albuterol Nebulizer 2.5mg/3mL HHN PRN (20:36)
[2018-05-29] MEDS ORDERED: Ipratropium Neb 0.5 mg/2.5 mL UD HHN PRN (20:36)
[2018-05-29] MEDS: D5-0.45NS 1,000 ML IV SCH (22:53)
[2018-05-30 03:16] VITALS: BP 110/56
[2018-05-30] MEDS: Levothyroxine 0.05 Mg Tab PO SCH (06:44)
--- NOTE | 2018-05-30 08:36 | Diagnostic Imaging Report ---
CHEST X-RAY: AP view INDICATION: Cough COMPARISON: 10/06/2017 FINDINGS: Again noted is accentuation of the interstitial lung markings. There is no focal consolidation or pleural effusions The heart is normal in size. Tortuous aorta is noted with atherosclerosis. Degenerative changes of the spine are noted with scoliosis. IMPRESSION: Redemonstration of accentuation of the interstitial lung markings, nonspecific. No focal consolidation identified. Tortuous aorta and atherosclerosis.
--- NOTE | 2018-05-30 08:43 | Diagnostic Imaging Report ---
Head CT without intravenous contrast Indication: Mass Comparison: None Technique: Axial images were obtained from the vertex to the skull base without IV contrast. Coronal reconstructions were made. Total DLP: 623, CTDI35 FINDINGS: Images of the brain obtained without contrast demonstrate evidence of previous left frontal and temporal craniotomies. There is no evidence of acute hemorrhage. Atrophy is noted. No gross mass lesions identified. The ventricles and basal cisterns are patent. The ayers-white matter differentiation is preserved. No mass effect or midline shift. No focal soft tissue swelling. The paranasal sinuses are clear. IMPRESSION: No evidence of an acute intracranial hemorrhage. No gross mass lesion identified by this noncontrast exam. Consider follow up exams with IV contrast if indicated Postsurgical changes evidence of left frontal left temporal craniotomies. Atrophy.
[2018-05-30] MEDS: D5-0.45NS 1,000 ML IV SCH ×2 (11:21→23:00)
--- NOTE | 2018-05-30 13:15 | History & Physical ---
ADMIT DATE: 05/30/2018 CHIEF COMPLAINT: Failure to thrive. HISTORY OF PRESENT ILLNESS: This is an unfortunate 73-year-old male with history of Parkinson's, dementia, seizure, hypothyroidism, GERD, gait instability, admitted from nursing facility secondary to not eating, not taking his medication. The patient is ____. PAST MEDICAL HISTORY: As mentioned in the history of present illness. PAST SURGICAL HISTORY: Previous craniotomy. ALLERGIES: PENICILLIN. MEDICATIONS: ____ Tylenol, Sinemet, clonazepam, Colace, famotidine, gabapentin, Keppra, Depakote, temazepam, Senokot, magnesium, Synthroid. FAMILY HISTORY: Noncontributory. SOCIAL HISTORY: The patient is a [facility] patient requiring 24-hour total care. REVIEW OF SYSTEMS: This is limited secondary to the patient's current mental state. We will try to obtain more detailed review of system at a later date by talking to family members. There is a son, Drake Oconnor, #[phone]. Angelique Oconnor, another daughter, #[phone]. We will also try to get information from the nursing staff at [facility], PHYSICAL EXAMINATION: VITAL SIGNS: Blood pressure 94/48, respiratory rate 18, pulse 54, temperature 98.5. GENERAL: Elderly male, appears chronically ill. NECK: Supple. No mass. LUNGS: Equal breath sounds, few rhonchi. HEART: Regular rate and rhythm with a systolic ejection murmur. ABDOMEN: Soft, globular. EXTREMITIES: Positive excoriations. NEUROLOGIC: Limited. LABORATORY DATA: WBC 4.5, hemoglobin 14, platelets 201. PT 9.4. Sodium 140, potassium 4.1, BUN 15, creatinine 0.9, blood sugar 110. TSH 6.9. ASSESSMENT AND PLAN: Failure to thrive in a patient with Parkinson's, dementia, seizure, hypothyroidism, gastroesophageal reflux disease, gait instability. Continue the patient on oxygen overnight. Continue on gentle hydration. Refer the patient to Psychiatry. We will perform a calorie count. The patient may need a G-tube at a later date. JOB# [id number]
[2018-05-30 14:02] LABS: URINE SOURCE CLEAN C
[2018-05-30 14:03] LABS: URINE BILIRUBIN NEGATIVE (NEGATIVE); URINE BLOOD NEGATIVE (NEGATIVE); URINE GLUCOSE (UA) NEGATIVE (NEGATIVE); URINE KETONE NEGATIVE (NEGATIVE); URINE LEUKOCYTE ESTERASE SMALL (NEGATIVE); URINE NITRATE NEGATIVE (NEGATIVE); URINE PROTEIN NEGATIVE (NEGATIVE); URINE UROBILINOGEN 0.2 E.U./dL (0.2 - 1.0)
[2018-05-30 14:27] LABS: URINE CLARITY CLEAR (CLEAR); URINE COLOR YELLOW; URINE MICROSCOPIC INDICATED? YES
[2018-05-30 14:37] LABS: URINE BACTERIA FEW /hpf (NONE SEEN); URINE EPITHELIAL CELLS FEW /lpf (FEW); URINE RBC 0-2 /hpf (0-5)
--- NOTE | 2018-05-30 21:01 | Consultation ---
DATE OF CONSULTATION: 05/30/2018 REQUESTING PHYSICIAN: Dr. Constantino. REASON FOR CONSULTATION: Agitated behavior. HISTORY OF PRESENT ILLNESS: This patient is a 73-year-old male, resident of a [facility] facility. Information obtained by directly interviewing the patient as well as reviewing the admission papers. JUSTIFICATION FOR CONSULTATION: The patient is admitted, out of control. The patient is screaming and yelling. The patient has to be given a dose of the Ativan to calm him down, following which, the patient is resting. Staff was spoken to. The patient is interviewed. Staff are reporting that the patient has refused to eat this evening, but the patient had good breakfast and lunch. I am not able to get much of information from the patient, but I know the patient from the previous psychiatric hospitalization. The patient has been diagnosed to have Parkinson's disease and the patient is also noted to have tardive dyskinesia symptoms. The patient at this time has been out of control and has been given the Ativan and has been sedated at this time. PAST PSYCHIATRIC HISTORY: Please refer to the above. MEDICAL HISTORY: Significant for Parkinson's disease, history of hypothyroidism and seizure disorder. MENTAL STATUS EXAMINATION: The patient is a 73-year-old, looking his stated age, superficially cooperative. Eye contact is noted to be poor. The patient is not giving much of information. The patient is sedated because of the medication. The patient, however, is reported to have been getting out of control, screaming and yelling and could not be contained. The patient is also reported to have been refusing to take the medications and eat and not able to give the full details on the mental status examination because of the patient's sedation. DIAGNOSTIC IMPRESSION: As per the information from the previous evaluation, the patient has been diagnosed to have psychotic disorder, not otherwise specified; rule out schizophrenia, chronic paranoid type. PLAN: To continue the patient with the supportive therapy and use the Haldol on a p.r.n. basis and follow the patient up. Thank you, Dr. Constantino for allowing me to participate in the care of the patient. JOB# [id number]
[2018-05-31 05:48] LABS: % EOSINOPHILS 2.7 % (0.0-5.0); % LYMPHOCYTES 43.9 % (20.0-50.0); % NEUTROPHILS 45.4 % (40.0-80.0); EOSINOPHILE ABSOLUTE 0.1 Th/cmm (0.1-0.4); HEMATOCRIT 40.7 % (41.0-60); HEMOGLOBIN 13.8 gm/dL (12-16); LYMPHOCYTE ABSOLUTE 1.8 Th/cmm (1.5-3.0); MEAN CORPUSCULAR HEMOGLOBIN 32.8 pg (27.0-31.0); MEAN CORPUSCULAR HGB CONC 33.8 pg (28.0-36.0); MONOCYTE ABSOLUTE 0.3 Th/cmm (0.3-1.0); PLATELET COUNT 153 Th/cmm (150-400); RED CELL DISTRIBUTION WIDTH 12.3 % (11.5-20.0); WHITE BLOOD COUNT 4.2 Th/cmm (4.8-10.8)
[2018-05-31 05:59] LABS: ANION GAP 10.2 (7.0-16.0); BUN - UREA NITROGEN 14 mg/dL (7-25); CALCIUM SERUM 8.3 mg/dL (8.6-10.3); CARBON DIOXIDE 25.6 mEq/L (21.0-31.0); CHLORIDE 109 mEq/L (98-107); CREATININE - SERUM 0.8 mg/dL (0.7-1.3); GLUCOSE 90 mg/dL (70-105); MAGNESIUM 2.4 mg/dL (1.9-2.7); POTASSIUM SERUM 3.8 mEq/L (3.5-5.1); SODIUM SERUM 141 mEq/L (136-145)
[2018-05-31] MEDS: Levothyroxine 0.05 Mg Tab PO SCH (07:04)
--- NOTE | 2018-05-31 12:56 | Internal Medicine Prog Note ---
Internal Medicine Subjective - Subjective Patient seen and examined:: with staff, chart reviewed Patient is:: awake, non-verbal, non-interactive Patient Complaints of:: congestion Per staff patient has:: no adverse event, no episodes of fall, poor appetite Internal Medicine Objective - Results Result Diagrams: 05/31/18 05:19 05/31/18 05:19 Recent Labs: Laboratory Last Values WBC 4.2 Th/cmm (4.8-10.8) L 05/31/18 05:19 RBC 4.20 Mil/cmm (3.80-5.80) 05/31/18 05:19 Hgb 13.8 gm/dL (12-16) 05/31/18 05:19 Hct 40.7 % (41.0-60) L 05/31/18 05:19 MCV 97.0 fl (80-99) 05/31/18 05:19 MCH 32.8 pg (27.0-31.0) H 05/31/18 05:19 MCHC Differential 33.8 pg (28.0-36.0) 05/31/18 05:19 RDW 12.3 % (11.5-20.0) 05/31/18 05:19 Plt Count 153 Th/cmm (150-400) 05/31/18 05:19 MPV 9.0 fl 05/31/18 05:19 Neutrophils % 45.4 % (40.0-80.0) 05/31/18 05:19 Lymphocytes % 43.9 % (20.0-50.0) 05/31/18 05:19 Monocytes % 7.0 % (2.0-10.0) 05/31/18 05:19 Eosinophils % 2.7 % (0.0-5.0) 05/31/18 05:19 Basophils % 1.0 % (0.0-2.0) 05/31/18 05:19 PT 9.4 SECONDS (9.5-11.5) L 05/29/18 18:55 INR 0.90 (0.5-1.4) 05/29/18 18:55 PTT (Actin FS) 24.2 SECONDS (26.0-38.0) L 05/29/18 18:55 Sodium 141 mEq/L (136-145) 05/31/18 05:19 Potassium 3.8 mEq/L (3.5-5.1) 05/31/18 05:19 Chloride 109 mEq/L (98-107) H 05/31/18 05:19 Carbon Dioxide 25.6 mEq/L (21.0-31.0) 05/31/18 05:19 Anion Gap 10.2 (7.0-16.0) 05/31/18 05:19 BUN 14 mg/dL (7-25) 05/31/18 05:19 Creatinine 0.8 mg/dL (0.7-1.3) 05/31/18 05:19 Est GFR ( Amer) TNP 05/31/18 05:19 Est GFR (Non-Af Amer) TNP 05/31/18 05:19 BUN/Creatinine Ratio 17.5 05/31/18 05:19 Glucose 90 mg/dL (70-105) 05/31/18 05:19 Calcium 8.3 mg/dL (8.6-10.3) L 05/31/18 05:19 Magnesium 2.4 mg/dL (1.9-2.7) 05/31/18 05:19 Total Bilirubin 0.4 mg/dL (0.3-1.0) 05/29/18 18:55 AST 16 U/L (13-39) 05/29/18 18:55 ALT 6 U/L (7-52) L 05/29/18 18:55 Alkaline Phosphatase 73 U/L (34-104) 05/29/18 18:55 Ammonia 75 umol/L (16-53) H 05/31/18 05:19 Troponin I 0.01 ng/mL (0.01-0.05) 05/29/18 18:55 B-Natriuretic Peptide 64.5 pg/mL (5.0-100.0) 05/31/18 05:19 Total Protein 7.0 gm/dL (6.0-8.3) 05/29/18 18:55 Albumin 4.1 gm/dL (4.2-5.5) L 05/29/18 18:55 Globulin 2.9 gm/dL 05/29/18 18:55 Albumin/Globulin Ratio 1.4 (1.0-1.8) 05/29/18 18:55 TSH 6.98 uIU/ml (0.34-5.60) H 05/29/18 18:55 Urine Source CLEAN C 05/30/18 13:49 Urine Color YELLOW 05/30/18 13:49 Urine Clarity CLEAR (CLEAR) 05/30/18 13:49 Urine pH 6.0 (4.6 - 8.0) 05/30/18 13:49 Ur Specific Boyce <= 1.005 (1.005-1.030) 05/30/18 13:49 Urine Protein NEGATIVE mg/dL (NEGATIVE) 05/30/18 13:49 Urine Glucose (UA) NEGATIVE mg/dL (NEGATIVE) 05/30/18 13:49 Urine Ketones NEGATIVE mg/dL (NEGATIVE) 05/30/18 13:49 Urine Blood NEGATIVE (NEGATIVE) 05/30/18 13:49 Urine Nitrate NEGATIVE (NEGATIVE) 05/30/18 13:49 Urine Bilirubin NEGATIVE (NEGATIVE) 05/30/18 13:49 Urine Urobilinogen 0.2 E.U./dL (0.2 - 1.0) 05/30/18 13:49 Ur Leukocyte Esterase SMALL (NEGATIVE) H 05/30/18 13:49 Urine RBC 0-2 /hpf (0-5) H 05/30/18 13:49 Urine WBC 2-5 /hpf (0-5) 05/30/18 13:49 Ur Epithelial Cells FEW /lpf (FEW) 05/30/18 13:49 Urine Bacteria FEW /hpf (NONE SEEN) 05/30/18 13:49 - Physical Exam Vitals and I&O: Vital Signs Temp 98.3 F 05/31/18 12:00 Pulse 59 05/31/18 12:00 Resp 18 05/31/18 12:00 BP 132/76 05/31/18 12:00 Pulse Ox 100 05/31/18 12:00 Intake & Output 05/30/18 05/31/18 05/31/18 18:59 06:59 18:59 Intake Total 862.216 1274 Balance 189.075 5018 Weight (lbs) 63.049 kg Intake: Intake, IV Amount 997.333 932 D5-0.45NS 1,000 ml @ 80 997.333 932 mls/hr IV .[id number] [facility] Rx #:[id number] Oral 500 Other: # Voids 4 # Bowel Movements 0 Weight Source Bedscale Active Medications: Current Medications Acetaminophen (Tylenol) 650 mg PO Q6HR PRN PRN Reason: PAIN MANAGEMENT Stop: 07/28/18 20:33 Albuterol Sulfate (Albuterol 2.5mg/3ml Neb Ud) 2.5 mg HHN Q2HRT PRN PRN Reason: Shortness of Breath or Wheeze Stop: 07/28/18 20:35 Aspirin (Ecotrin) 81 mg PO DAILY [facility] Stop: 07/29/18 08:59 Last Admin: 05/31/18 09:46 Dose: 81 mg Carbidopa/Levodopa (Sinemet 25mg-100 Mg) 1 tab PO TID [facility] Stop: 07/28/18 20:59 Last Admin: 05/31/18 09:47 Dose: 1 tab Clonazepam (Klonopin) 0.5 mg PO BID [facility]; Protocol Stop: 07/29/18 08:59 Last Admin: 05/31/18 09:47 Dose: 0.5 mg Docusate Sodium (Colace) 100 mg PO BID [facility] Stop: 07/29/18 08:59 Last Admin: 05/31/18 09:47 Dose: 100 mg Famotidine (Pepcid) 20 mg PO DAILY [facility] Stop: 07/29/18 08:59 Last Admin: 05/31/18 09:47 Dose: 20 mg Gabapentin (Neurontin) 450 mg PO TID [facility] Stop: 07/28/18 20:59 Last Admin: 05/31/18 09:46 Dose: 450 mg Dextrose/Sodium Chloride (D5-0.45ns) 1,000 mls @ 80 mls/hr IV .[id number] [facility] Stop: 07/28/18 20:44 Last Admin: 05/30/18 23:00 Dose: 80 mls/hr Ipratropium [place] (Atrovent Neb 0.5mg/2.5ml) 0.5 mg HHN Q2HRT PRN PRN Reason: Shortness of Breath or Wheeze Stop: 07/28/18 20:35 Lactulose (Cephulac) 30 gm PO BID [facility] Stop: 07/30/18 16:59 Levetiracetam (Keppra) 500 mg PO BID [facility] Stop: 07/29/18 08:59 Last Admin: 05/31/18 09:46 Dose: 500 mg Levothyroxine Sodium (Synthroid) 0.075 mg PO QDAC [facility] Stop: 07/29/18 07:29 Last Admin: 05/31/18 07:04 Dose: 0.075 mg Lorazepam (Ativan) 1 mg PO Q6HR PRN; Protocol PRN Reason: Anxiety Stop: 07/28/18 20:33 Last Admin: 05/31/18 01:29 Dose: 1 mg Lorazepam (Ativan) 1 mg IV Q4H PRN; Protocol PRN Reason: Seizure Stop: 07/28/18 20:35 Magnesium Hydroxide (Milk Of Magnesia) 30 ml PO Q24H PRN PRN Reason: Constipation Stop: 07/28/18 20:33 Ondansetron HCl (Zofran) 4 mg IV Q8H PRN PRN Reason: Nausea / Vomiting Stop: 07/28/18 20:35 Quetiapine Fumarate (Seroquel) 25 mg PO HS [facility]; Protocol Stop: 07/29/18 20:59 Last Admin: 05/30/18 22:49 Dose: 25 mg Temazepam (Restoril) 15 mg PO HS PRN; Protocol PRN Reason: Insomnia Stop: 07/28/18 20:33 Valproate Sodium (Depakene) 250 mg PO BID [facility]; Protocol Stop: 07/29/18 08:59 Last Admin: 05/31/18 09:46 Dose: 250 mg General: demented, bilateral temporal wasting HEENT: NC/AT, PERRLA, thinning hair, poor dentition Neck: Supple, No JVD Lungs: congested Cardiovascular: RRR, Normal S1, Normal S2, with murmur Abdomen: soft, non-tender, globular, positive bowel sound Extremities: excoriation, contracture Internal Medicine Assmt/Plan - Assessment Assessment: ASSESSMENT AND PLAN: Failure to thrive in a patient with Parkinson's, dementia, seizure, hypothyroidism, gastroesophageal reflux disease, gait instability. hepatic encephalopathy - Plan Plan: will add lactulose Continue the patient on oxygen overnight. Continue on gentle hydration. Refer the patient to Psychiatry. We will perform a calorie count. The patient may need a G-tube at a later date. Nutritional Asmnt/Malnutr-PDOC - Dietary Evaluation Malnutrition Findings (Please click <Entered> for more info): Nutritional Asmnt/Malnutrition Start: 05/30/18 14: 34 Text: Status: Complete Freq: Protocol: Document 02/26/19 14:35 LCHENG (Rec: 05/30/18 14:44 LCHENG [email or web address]) Nutritional Asmnt/Malnutrition Patient General Information Nutritional Screening High Risk Consult Diagnosis FTT Pertinent Medical Hx/Surgical Hx PUD/GERD, seizures, thyroid disorder, schizophrenia, dementia Subjective Information Consult received for skin breakdown. Pt seen sleeping in bed at time of visit. RN Sadiq stated pt ate 50% of breakfast tray and tacos brought by his family. Current Diet Order/ Nutrition Support pureed BARB Pertinent Medications D5-0.45ns, pepcid, colace, synthroid, senna Pertinent Labs 05/29 glucose 110, alb 4.1 Nutritional Hx/Data Height 1.57 m Height (Calculated Centimeters) 157.5 Current Weight (lbs) 63.049 kg Weight (Calculated Kilograms) 63.0 Weight (Calculated Grams) 22865.3 [place] Body Weight 118 Body Mass Index (BMI) 25.4 Weight Status Overweight GI Symptoms GI Symptoms None Last BM none Difficult in: None Skin Integrity/Comment: scar to R/L legs Current %PO Fair (50-74%) Estimated Nutritional Goals BEE in Kcals: Using Current wt Calories/Kcals/Kg 23-27 Kcals Calculated 4065-7605 Protein: Using Current wt Protein g/k Protein Calculated 63 Fluid: ml 1449-1701ml (1ml/kcal) Nutritional Problem No current Nutrition Prob Problem N/A Malnutrition Related to Morbid Obesity Malnutrition related to morbid obesity No Intervention/Recommendation Comments 1. Continue with pureed BARB diet as ordered. Consider swallow eval to assess the need for pureed diet. 2. Monitor PO intake, wt, labs and skin integrity 3. F/U as high risk in 2-3 days Expected Outcomes/Goals Expected Outcomes/Goals 1. PO intake to meet at least 75% of nutritional needs. 2. Wt stability, skin to remain intact, labs to approach WNL.
[2018-05-31] MEDS: D5-0.45NS 1,000 ML IV SCH (15:42)
[2018-05-31] MEDS: Lactulose 10 Gm/15 mL 30mL UDC PO SCH (18:47)
[2018-06-01 06:39] LABS: % BASOPHILS 0.5 % (0.0-2.0); % EOSINOPHILS 1.9 % (0.0-5.0); % LYMPHOCYTES 41.7 % (20.0-50.0); % MONOCYTES 7.2 % (2.0-10.0); % NEUTROPHILS 48.7 % (40.0-80.0); EOSINOPHILE ABSOLUTE 0.1 Th/cmm (0.1-0.4); HEMATOCRIT 40.7 % (41.0-60); HEMOGLOBIN 13.4 gm/dL (12-16); LYMPHOCYTE ABSOLUTE 2.3 Th/cmm (1.5-3.0); MEAN CELL VOLUME 97.9 fl (80-99); MEAN CORPUSCULAR HEMOGLOBIN 32.4 pg (27.0-31.0); MEAN PLATELET VOLUME 8.7 fl; MONOCYTE ABSOLUTE 0.4 Th/cmm (0.3-1.0); NEUTROPHILE ABSOLUTE 2.6 Th/cmm (1.8-8.0); PLATELET COUNT 177 Th/cmm (150-400); RED BLOOD COUNT 4.16 Mil/cmm (3.80-5.80); RED CELL DISTRIBUTION WIDTH 12.4 % (11.5-20.0); WHITE BLOOD COUNT 5.4 Th/cmm (4.8-10.8)
[2018-06-01] MEDS: Levothyroxine 0.05 Mg Tab PO SCH (06:43)
[2018-06-01 07:05] LABS: ANION GAP 9.8 (7.0-16.0); BUN - UREA NITROGEN 14 mg/dL (7-25); CALCIUM SERUM 8.5 mg/dL (8.6-10.3); CARBON DIOXIDE 25.9 mEq/L (21.0-31.0); CHLORIDE 109 mEq/L (98-107); CREATININE - SERUM 0.9 mg/dL (0.7-1.3); GLUCOSE 91 mg/dL (70-105); POTASSIUM SERUM 3.7 mEq/L (3.5-5.1); SODIUM SERUM 141 mEq/L (136-145)
[2018-06-01] MEDS: Lactulose 10 Gm/15 mL 30mL UDC PO SCH ×2 (08:45→16:33)
[2018-06-01] MEDS: D5-0.45NS 1,000 ML IV SCH ×2 (10:31→10:33)
[2018-06-01 12:09] LABS: FOLIC ACID 11.6 ng/mL (>3.0)
--- NOTE | 2018-06-01 14:53 | Internal Medicine Prog Note ---
Internal Medicine Subjective - Subjective Patient seen and examined:: with staff, chart reviewed, other (eating a bit more ) Patient is:: awake, non-verbal, non-interactive Patient Complaints of:: congestion Per staff patient has:: no adverse event, no episodes of fall, poor appetite Internal Medicine Objective - Results Result Diagrams: 06/01/18 06:20 06/01/18 06:20 Recent Labs: Laboratory Last Values WBC 5.4 Th/cmm (4.8-10.8) 06/01/18 06:20 RBC 4.16 Mil/cmm (3.80-5.80) 06/01/18 06:20 Hgb 13.4 gm/dL (12-16) 06/01/18 06:20 Hct 40.7 % (41.0-60) L 06/01/18 06:20 MCV 97.9 fl (80-99) 06/01/18 06:20 MCH 32.4 pg (27.0-31.0) H 06/01/18 06:20 MCHC Differential 33.0 pg (28.0-36.0) 06/01/18 06:20 RDW 12.4 % (11.5-20.0) 06/01/18 06:20 Plt Count 177 Th/cmm (150-400) 06/01/18 06:20 MPV 8.7 fl 06/01/18 06:20 Neutrophils % 48.7 % (40.0-80.0) 06/01/18 06:20 Lymphocytes % 41.7 % (20.0-50.0) 06/01/18 06:20 Monocytes % 7.2 % (2.0-10.0) 06/01/18 06:20 Eosinophils % 1.9 % (0.0-5.0) 06/01/18 06:20 Basophils % 0.5 % (0.0-2.0) 06/01/18 06:20 PT 9.4 SECONDS (9.5-11.5) L 05/29/18 18:55 INR 0.90 (0.5-1.4) 05/29/18 18:55 PTT (Actin FS) 24.2 SECONDS (26.0-38.0) L 05/29/18 18:55 Sodium 141 mEq/L (136-145) 06/01/18 06:20 Potassium 3.7 mEq/L (3.5-5.1) 06/01/18 06:20 Chloride 109 mEq/L (98-107) H 06/01/18 06:20 Carbon Dioxide 25.9 mEq/L (21.0-31.0) 06/01/18 06:20 Anion Gap 9.8 (7.0-16.0) 06/01/18 06:20 BUN 14 mg/dL (7-25) 06/01/18 06:20 Creatinine 0.9 mg/dL (0.7-1.3) 06/01/18 06:20 Est GFR ( Amer) TNP 06/01/18 06:20 Est GFR (Non-Af Amer) TNP 06/01/18 06:20 BUN/Creatinine Ratio 15.6 06/01/18 06:20 Glucose 91 mg/dL (70-105) 06/01/18 06:20 Calcium 8.5 mg/dL (8.6-10.3) L 06/01/18 06:20 Magnesium 2.4 mg/dL (1.9-2.7) 05/31/18 05:19 Total Bilirubin 0.4 mg/dL (0.3-1.0) 05/29/18 18:55 AST 16 U/L (13-39) 05/29/18 18:55 ALT 6 U/L (7-52) L 05/29/18 18:55 Alkaline Phosphatase 73 U/L (34-104) 05/29/18 18:55 Ammonia 75 umol/L (16-53) H 05/31/18 05:19 Troponin I 0.01 ng/mL (0.01-0.05) 05/29/18 18:55 B-Natriuretic Peptide 85.6 pg/mL (5.0-100.0) 06/01/18 06:20 Total Protein 7.0 gm/dL (6.0-8.3) 05/29/18 18:55 Albumin 4.1 gm/dL (4.2-5.5) L 05/29/18 18:55 Globulin 2.9 gm/dL 05/29/18 18:55 Albumin/Globulin Ratio 1.4 (1.0-1.8) 05/29/18 18:55 Vitamin B12 499 pg/mL (232-1245) 05/31/18 05:19 Folic Acid 11.6 ng/mL (>3.0) 05/31/18 05:19 TSH 6.98 uIU/ml (0.34-5.60) H 05/29/18 18:55 Urine Source CLEAN C 05/30/18 13:49 Urine Color YELLOW 05/30/18 13:49 Urine Clarity CLEAR (CLEAR) 05/30/18 13:49 Urine pH 6.0 (4.6 - 8.0) 05/30/18 13:49 Ur Specific [place] <= 1.005 (1.005-1.030) 05/30/18 13:49 Urine Protein NEGATIVE mg/dL (NEGATIVE) 05/30/18 13:49 Urine Glucose (UA) NEGATIVE mg/dL (NEGATIVE) 05/30/18 13:49 Urine Ketones NEGATIVE mg/dL (NEGATIVE) 05/30/18 13:49 Urine Blood NEGATIVE (NEGATIVE) 05/30/18 13:49 Urine Nitrate NEGATIVE (NEGATIVE) 05/30/18 13:49 Urine Bilirubin NEGATIVE (NEGATIVE) 05/30/18 13:49 Urine Urobilinogen 0.2 E.U./dL (0.2 - 1.0) 05/30/18 13:49 Ur Leukocyte Esterase SMALL (NEGATIVE) H 05/30/18 13:49 Urine RBC 0-2 /hpf (0-5) H 05/30/18 13:49 Urine WBC 2-5 /hpf (0-5) 05/30/18 13:49 Ur Epithelial Cells FEW /lpf (FEW) 05/30/18 13:49 Urine Bacteria FEW /hpf (NONE SEEN) 05/30/18 13:49 - Physical Exam Vitals and I&O: Vital Signs Temp 97.0 F 06/01/18 10:00 Pulse 64 06/01/18 10:14 Resp 18 06/01/18 10:14 BP 145/79 06/01/18 10:00 Pulse Ox 99 06/01/18 10:14 Intake & Output 05/31/18 06/01/18 06/01/18 18:59 06:59 18:59 Intake Total 1000 1000 102.667 Output Total 0 Balance 1000 1000 102.667 Weight (lbs) 63.049 kg Intake: Intake, IV Amount 1000 1000 2.667 D5-0.45NS 1,000 ml @ 80 1000 1000 2.667 mls/hr IV .[id number] [facility] Rx #:[id number] Oral 100 Output: Stool 0 Other: # Voids 4 Weight Source Bedscale Active Medications: Current Medications Acetaminophen (Tylenol) 650 mg PO Q6HR PRN PRN Reason: PAIN MANAGEMENT Stop: 07/28/18 20:33 Last Admin: 06/01/18 01:30 Dose: 650 mg Albuterol Sulfate (Albuterol 2.5mg/3ml Neb Ud) 2.5 mg HHN Q2HRT PRN PRN Reason: Shortness of Breath or Wheeze Stop: 07/28/18 20:35 Aspirin (Ecotrin) 81 mg PO DAILY [facility] Stop: 07/29/18 08:59 Last Admin: 06/01/18 08:46 Dose: 81 mg Carbidopa/Levodopa (Sinemet 25mg-100 Mg) 1 tab PO TID [facility] Stop: 07/28/18 20:59 Last Admin: 06/01/18 08:45 Dose: 1 tab Clonazepam (Klonopin) 0.5 mg PO BID [facility]; Protocol Stop: 07/29/18 08:59 Last Admin: 06/01/18 08:45 Dose: 0.5 mg Docusate Sodium (Colace) 100 mg PO BID [facility] Stop: 07/29/18 08:59 Last Admin: 06/01/18 08:46 Dose: 100 mg Famotidine (Pepcid) 20 mg PO DAILY [facility] Stop: 07/29/18 08:59 Last Admin: 06/01/18 08:45 Dose: 20 mg Gabapentin (Neurontin) 450 mg PO TID [facility] Stop: 07/28/18 20:59 Last Admin: 06/01/18 08:46 Dose: 450 mg Dextrose/Sodium Chloride (D5-0.45ns) 1,000 mls @ 80 mls/hr IV .[id number] [facility] Stop: 07/28/18 20:44 Last Admin: 06/01/18 10:33 Dose: 80 mls/hr Ipratropium [place] (Atrovent Neb 0.5mg/2.5ml) 0.5 mg HHN Q2HRT PRN PRN Reason: Shortness of Breath or Wheeze Stop: 07/28/18 20:35 Lactulose (Cephulac) 30 gm PO BID [facility] Stop: 07/30/18 16:59 Last Admin: 06/01/18 08:45 Dose: 30 gm Levetiracetam (Keppra) 500 mg PO BID [facility] Stop: 07/29/18 08:59 Last Admin: 06/01/18 08:47 Dose: 500 mg Levothyroxine Sodium (Synthroid) 0.075 mg PO QDAC [facility] Stop: 07/29/18 07:29 Last Admin: 06/01/18 06:43 Dose: 0.075 mg Lorazepam (Ativan) 1 mg PO Q6HR PRN; Protocol PRN Reason: Anxiety Stop: 07/28/18 20:33 Last Admin: 06/01/18 00:41 Dose: 1 mg Lorazepam (Ativan) 1 mg IV Q4H PRN; Protocol PRN Reason: Seizure Stop: 07/28/18 20:35 Magnesium Hydroxide (Milk Of Magnesia) 30 ml PO Q24H PRN PRN Reason: Constipation Stop: 07/28/18 20:33 Ondansetron HCl (Zofran) 4 mg IV Q8H PRN PRN Reason: Nausea / Vomiting Stop: 07/28/18 20:35 Quetiapine Fumarate (Seroquel) 25 mg PO HS [facility]; Protocol Stop: 07/29/18 20:59 Last Admin: 05/31/18 21:52 Dose: 25 mg Temazepam (Restoril) 15 mg PO HS PRN; Protocol PRN Reason: Insomnia Stop: 07/28/18 20:33 Last Admin: 05/31/18 21:51 Dose: 15 mg Valproate Sodium (Depakene) 250 mg PO BID [facility]; Protocol Stop: 07/29/18 08:59 Last Admin: 06/01/18 08:47 Dose: 250 mg General: demented, bilateral temporal wasting HEENT: NC/AT, PERRLA, thinning hair, poor dentition Neck: Supple, No JVD Lungs: congested Cardiovascular: RRR, Normal S1, Normal S2, with murmur Abdomen: soft, non-tender, globular, positive bowel sound Extremities: excoriation, contracture Internal Medicine Assmt/Plan - Assessment Assessment: ASSESSMENT AND PLAN: Failure to thrive in a patient with Parkinson's, dementia, seizure, hypothyroidism, gastroesophageal reflux disease, gait instability. hepatic encephalopathy - Plan Plan: will add lactulose Continue the patient on oxygen overnight. Continue on gentle hydration. Refer the patient to Psychiatry. We will perform a calorie count. The patient may need a G-tube at a later date. Nutritional Asmnt/Malnutr-PDOC - Dietary Evaluation Malnutrition Findings (Please click <Entered> for more info): Nutritional Asmnt/Malnutrition Start: 05/30/18 14: 34 Text: Status: Complete Freq: Protocol: Document 05/30/18 14:35 [email or web address] (Rec: 05/30/18 14:44 [email or web address]) Nutritional Asmnt/Malnutrition Patient General Information Nutritional Screening High Risk Consult Diagnosis FTT Pertinent Medical Hx/Surgical Hx PUD/GERD, seizures, thyroid disorder, schizophrenia, dementia Subjective Information Consult received for skin breakdown. Pt seen sleeping in bed at time of visit. KARTHIK Babcock stated pt ate 50% of breakfast tray and tacos brought by his family. Current Diet Order/ Nutrition Support pureed BARB Pertinent Medications D5-0.45ns, pepcid, colace, synthroid, senna Pertinent Labs 05/29 glucose 110, alb 4.1 Nutritional Hx/Data Height 1.57 m Height (Calculated Centimeters) 157.5 Current Weight (lbs) 63.049 kg Weight (Calculated Kilograms) 63.0 Weight (Calculated Grams) 17305.3 [place] Body Weight 118 Body Mass Index (BMI) 25.4 Weight Status Overweight GI Symptoms GI Symptoms None Last BM none Difficult in: None Skin Integrity/Comment: scar to R/L legs Current %PO Fair (50-74%) Estimated Nutritional Goals BEE in Kcals: Using Current wt Calories/Kcals/Kg 23-27 Kcals Calculated 9756-4644 Protein: Using Current wt Protein g/k Protein Calculated 63 Fluid: ml 1449-1701ml (1ml/kcal) Nutritional Problem No current Nutrition Prob Problem N/A Malnutrition Related to Morbid Obesity Malnutrition related to morbid obesity No Intervention/Recommendation Comments 1. Continue with pureed BARB diet as ordered. Consider swallow eval to assess the need for pureed diet. 2. Monitor PO intake, wt, labs and skin integrity 3. F/U as high risk in 2-3 days Expected Outcomes/Goals Expected Outcomes/Goals 1. PO intake to meet at least 75% of nutritional needs. 2. Wt stability, skin to remain intact, labs to approach WNL.
[2018-06-02] MEDS: Levothyroxine 0.05 Mg Tab PO SCH (08:54)
[2018-06-02] MEDS: Lactulose 10 Gm/15 mL 30mL UDC PO SCH (09:50)
[2018-06-02] MEDS: D5-0.45NS 1,000 ML IV SCH (09:53)
--- NOTE | 2018-06-02 12:55 | Discharge Summary ---
DATE OF DISCHARGE: 06/02/2018 CHIEF COMPLAINT: Failure to thrive. FINAL DIAGNOSES: Failure to thrive, decompensated, psych disorder, Parkinson, dementia, seizure, hypothyroidism, gastroesophageal reflux disease, gait instability and bedbound. HISTORY: This unfortunate 73-year-old man with history of Parkinson dementia, seizure, hypothyroidism, GERD, gait instability. The patient is admitted from nursing facility secondary to not eating, not taking medications, being admitted for further management and admitted through the ER. PHYSICAL EXAMINATION: VITAL SIGNS: Blood pressure 108/60, respiration 18, pulse 63, temperature 97.8. GENERAL: Elderly male, appears stated age. NECK: Supple. No mass. LUNGS: Equal breath sounds, few rhonchi. HEART: Regular rate and rhythm without appreciable murmur. ABDOMEN: Soft, globular. EXTREMITIES: Positive excoriation atrophy. NEUROLOGIC: Limited. HOSPITAL COURSE: The patient was admitted to medical floor, continue IV hydration and referred to Dr. Ricci for psych. Her psychotropic medications were adjusted. The patient was put antiepileptic medications and continue lactulose. The patient's condition has improved and cleared for discharge. CONDITION ON DISCHARGE: Fair. DISCHARGE INSTRUCTIONS: The patient to continue with current care. An echocardiogram was performed and able to take ____. No plan for G-tube placement at this time. JOB# [id number]
== END 2018-06-02 16:42 | DRG 421 ==
LOC: ER 18:24 → MSI 21:12
PROVIDERS: ADMIT Internal Medicine; ATTEND Internal Medicine
DX: R62.7 Adult failure to thrive (principal); G20 Parkinson's disease; F20.9 Schizophrenia, unspecified; F02.80 Dementia in other diseases classified elsewhere, unspecified severity, without behavioral disturbance, psychotic disturbance, mood disturbance, and anxiety; K21.9 Gastro-esophageal reflux disease without esophagitis; R26.9 Unspecified abnormalities of gait and mobility; F29 Unspecified psychosis not due to a substance or known physiological condition; E03.9 Hypothyroidism, unspecified; G40.909 Epilepsy, unspecified, not intractable, without status epilepticus; K72.90 Hepatic failure, unspecified without coma; Z74.01 Bed confinement status; Z88.0 Allergy status to penicillin
CPT/HCPCS: 36415-UA; 70450-TC; 71045-TC; 80048-TC; 80053-TC; 81001-TC; 82140-TC; 82607-90; 82746-90; 83735-TC; 83880-TC; 84443-TC; 84484-TC; 85025-TC; 85610-TC; 85730-TC; 93005; 94760; 96374; 96375; J2060; Z7610